=== PATIENT | female | born 1945 | race Caucasian/White ===

== ENCOUNTER 2018-07-30 15:16 | Inpatient (IN) | payer MEDICAID ==
[~2018-07-30] VITALS: Ht 152.4 cm; Wt 69.1 kg
[2018-07-30] MEDS ORDERED: MELATONIN 3 MG TABLET PO PRN (15:30)
[2018-07-30] MEDS ORDERED: LOPERAMIDE 2 MG (IMODIUM) CAP PO PRN (15:30)
[2018-07-30] MEDS ORDERED: CALCIUM CARBONATE 500 MG (TUMS) TAB.CHEW PO PRN (15:30)
[2018-07-30] MEDS ORDERED: DOCUSATE SODIUM 100 MG (COLACE) CAP PO PRN (15:30)
[2018-07-30] MEDS ORDERED: diphenhydrAMINE 25 MG TAB (BENADRYL) PO PRN (15:30)
[2018-07-30] MEDS ORDERED: ONDANSETRON 4 MG (ZOFRAN) ORAL DISSOLVE TAB PO PRN ×2 (15:30→19:00)
[2018-07-30] MEDS ORDERED: LISI2.5T PO (16:18)
[2018-07-30] MEDS ORDERED: LACT10SO33 PO (16:18)
[2018-07-30] MEDS ORDERED: TRAM50TA2 PO (16:18)
[2018-07-30] MEDS ORDERED: VENL25TA2 PO (16:18)
[2018-07-30] MEDS ORDERED: CIPR-226 PO (16:18)
[2018-07-30] MEDS ORDERED: STL80T PO ×2 (16:18)
[2018-07-30] MEDS ORDERED: DOXE100C4 PO (16:18)
[2018-07-30] MEDS ORDERED: ATOR40TA PO (16:18)
[2018-07-30] MEDS ORDERED: BUTA1CAP37 PO (16:18)
[2018-07-30] MEDS ORDERED: DIAZ10TA3 PO (16:18)
[2018-07-30] MEDS ORDERED: ONDN4T PO (16:18)
[2018-07-30] MEDS ORDERED: APIX5TAB PO (16:18)
[2018-07-30] MEDS ORDERED: CALC-694 PO (16:18)
[2018-07-30] MEDS ORDERED: RANI150T90 PO (16:18)
[2018-07-30] MEDS ORDERED: NF-NACL1GT PO (16:18)
[2018-07-30] MEDS ORDERED: IPRA3AMP31 NEB (16:18)
[2018-07-30] MEDS ORDERED: LORA10TA7 PO (16:20)
--- NOTE | 2018-07-30 16:25 | NUR ---
UPDATED MED REC WITH DISCHARGE MED ORDERS FROM [facility]. NOTE THE FOLLOWING CHANGES WERE MADE WHEN THE PATIENT DISCHARGE: START TAKING: CIPRO 250MG Q12H 1 DAY SODIUM CHLORIDE 1GM TID X 7 DAYS CHANGE HOW YOU TAKE: LISINOPRIL 2/5MG DAILY (UNSURE OF WHAT PRIOR DOSE WAS) I WILL UPDATE THE MED REC BACK TO THE LIST OF HOME MEDS AT A LATER DATE FOR PROPER DISCHARGE HOME ORDERS. Addendum: 07/31/18 at 1042 by CHEPE CAMPBELL [facility] UPDATED MED REC BACK TO THE LIST OF HOME MEDS THE PATIENT WAS TAKING PRIOR TO DISCHARGE FROM [facility]. I USED THE DISCHARGE ORDER CHANGES WELL COMPARED WITH WHAT HAS BEEN FILLED AT [facility] [place]. I REMOVED THE CIPRO AND SODIUM CHLORIDE THAT WAS STARTED AT DISCHARGE FROM THE MED REC. I CHANGED THE LISINOPRIL BACK TO THE 5MG DAILY (IT WAS DECREASED TO 2.5MG DAILY AT DISCHARGE) THE VENLAFAXINE WAS ORDERED TO CONTINUE 25MG HS AT DISCHARGE HOWEVER ACCORDING TO THE EXT MED HX SHE TAKING 1/2 TAB AT HS. I UPDATED THE DIRECTIONS TO WHAT IS SHOWN ON THE EXT MED HX AT THIS TIME. IN ADDITION TO WHAT IS SHOWN ON THE EXT MED HX [facility] FILL[facility]: 07-11-18 TRAMADOL 50MG #60 07-09-18 DUONEB NEBULIZER SOLUTION #270 06-29-18 SOTALOL 80MG #75 06-27-18 DIAZEPAM 10MG #60 04-13-18 LACTULOSE 10GM/15ML #946 04-02-18 ZOFRAN 4MG #60 ALSO REPORTED WAS CALCIUM +D BID OTC.
--- NOTE | 2018-07-30 18:15 | NUR ---
Admitted to room 232-1, with an admitting diagnosis of rt hip nialing, on 07/30/18 from [facility] , accompanied by .CANDI WEBSTER V introduced to surroundings, call light, bed controls, phone, TV, temperature control, lights, meal times, smoking policy, visitor policy, side rail policy, bathrooms and showers. Patient Rights given to patient in the handbook.CANDI WEBSTER V verbalizes understanding that [facility] is not responsible for the loss or damage to any personal effects or valuables that are kept in the patients posession during their hospitalization. The following Patient Care Plans were discussed with the : Discharge Planning, ,, alteration in skin integrity and . CANDI WEBSTER V verbalizes understanding of Interdisciplinary Patient Education. Patient and/or family were informed about the Rapid Response Team and its purpose. Patient received Patient Rights Booklet, which includes Privacy Act Statement and Data Collection Information Summary.
--- NOTE | 2018-07-30 18:43 | PM&R H&P / Post Admit Assess ---
History of Present Illness HPI/Chief Complaint CC: Right hip fracture repair with debility HPI: This is a 72yoWF chronically debilitated with h/o CAD previous CABG and PAF who presents to the IRF in need of intensive therapy prior to returning home. I have reviewed the records from [facility] and derived most of the details for this report. Patient's PCP is Dr Plascencia. She wears O2 at home prn and at night. Hospitalist did report that she had issues with hyponatremia while in patient and volume overload with dyspnea which improved with Lasix. UTI will need 2 more days of treatment on the current antibiotic selected and continued at this facility. Patient reports her pain is much improved and she had a BM today with resolution of the post op constipation. She lives at home alone and barriers to returning back to that environment will include ADL independence and return of ambulation with walker. Source: patient, RN/MD, old records Exam Limitations: no limitations Date Seen 07/30/18 Time Seen by a Provider: 18:00 Attending Physician Gertrude Barraza DO PCP Shlomo Plascencia MD Referring Physician Date of Admission July 30, 2018 at 18:12 Home Medications & Allergies Home Medications Reviewed patient Home Medication Reconciliation performed by pharmacy medication reconciliations surgical scrub technician and/or nursing. Patients Allergies have been reviewed. 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) Alcohol Use: Denies Use Smoking Status: Never a Smoker Recent Foreign Travel: No Contact w/other who traveled: No Recent Infectious Disease Expo: No Immunizations Up To Date Date of Pneumonia Vaccine: July 30, 2014 Past Medical History Surgeries: CABG, Orthopedic restrictive lung disease Cardiac: Atrial Fibrillation, Coronary Artery Disease, High Cholesterol, Hypertension Genitourinary: Renal Failure Gastrointestinal: Gastroesophageal Reflux, Chronic Constipation Musculoskeletal: Arthritis, Chronic Back Pain Cancer: Skin, Breast Psychosocial: Anxiety, Depression Review of Systems Constitutional: see HPI, malaise, weakness EENTM: no symptoms reported Respiratory: no symptoms reported Cardiovascular: no symptoms reported Gastrointestinal: no symptoms reported Genitourinary: no symptoms reported Musculoskeletal: joint pain Skin: no symptoms reported Psychiatric/Neurological: No Symptoms Reported All Other Systems Reviewed Negative Unless Noted: Yes Physical Exam Exam Vital Signs Vital Signs Date Time Temp Pulse Resp B/P (MAP) Pulse Ox O2 Delivery O2 Flow Rate FiO2 07/30/18 21:15 70 18 120/68 (85) 100 Nasal Cannula 3.00 07/30/18 18:44 97.4 Capillary Refill : General Appearance: No Apparent Distress, WD/WN, Chronically ill, Thin, Other ( frail, pale) HEENT: PERRL/EOMI, Normal ENT Inspection, Pharynx Normal, Moist Mucous Membranes Neck: Full Range of Motion, Normal Inspection, Non Tender, Supple Respiratory: Chest Non Tender, Lungs Clear, Normal Breath Sounds, No Accessory Muscle Use, No Respiratory Distress Cardiovascular: Regular Rate, Rhythm, No Edema, No Gallop, No JVD, No Murmur Gastrointestinal: Normal Bowel Sounds, No Organomegaly, No Pulsatile Mass, Non Tender, Soft Back: Normal Inspection, No CVA Tenderness, No Vertebral Tenderness Extremity: Normal Capillary Refill, Normal Inspection, Normal Range of Motion ( except right leg from pain), Non Tender, No Calf Tenderness, No Pedal Edema Neurologic/Psychiatric: Alert, Oriented x3, No Motor/Sensory Deficits, Depressed Affect Skin: Normal Color, Warm/Dry Lymphatic: No Adenopathy Results Results/Procedures Labs Laboratory Tests 07/31/18 05:25 Patient resulted labs reviewed. Assessment/Plan Assessment and Plan Assess & Plan/Chief Complaint Assessment: s/p right hip fracture repair 07/20/18 PAF Restrictive lung disease Anticoagulation Hyponatremia Acute UTI on abx s/p constipation Chronic debility O2 dependent Falls h/o breast cancer Anemia CAD Plan: IRF protocols Consult DR Montgomery Monitor BP Check labs Abx to be completed (1) Hip fracture, right (2) CAD (coronary artery disease) (3) Hx of CABG (4) Atrial fibrillation (5) Restrictive lung disease (6) Oxygen dependent (7) Hypertension (8) Anemia (9) Constipation (10) Hyponatremia (11) Hypothyroidism (12) Osteoporosis (13) Gastritis (14) Anticoagulant prescribed (15) GERD (gastroesophageal reflux disease) (16) Hyperlipidemia (17) History of melanoma (18) Anxiety (19) HX: breast cancer Post Admission Physician Asses Date seen by provider: July 31, 2018 Time seen by provider: 18:00 Admisison Dx: (1) Hip fracture, right The preadmission screen agrees with the post admission assessment that the patient is a good candidate for inpatient rehabilitation. The patient will have a comprehensive program of inpatient rehabilitation with a goal of maximizing level of functional independence prior to discharge home. The patient will have PT/OT ninety minutes per day, each discipline, five days a week for gait, strengthening, conditioning, balance, ADLs, any patient/ family/caregiver training as necessary. Speech therapy to do cognitive assessment and treat as indicated. Rehabilitation nursing to assist with bowel, bladder, skin, wound care, medication administration, pain management. Loader to assist with discharge planning, community reentry. SCD's for DVT prophylaxis. She appears to be well motivated to participate in three hours of therapy a day. She should be able to tolerate three hours of therapy a day from a medical standpoint. She should benefit from the three hours of therapy a day. She has a reasonable discharge plan, reasonable discharge rehabilitation goals and a supportive family. She has various comorbidities that need to be closely monitored with medications and treatments adjusted on a daily basis as needed. These include: see list Barriers to discharge for this patient who had been independent prior to this are for her to be modified independent to supervision for ADLs and mobility skills prior to discharge home, so as to lessen the burden of the caregivers. Risks for this patient include: 1. Fall 2. Fracture 3. DVT 4. Pulmonary embolism 5. Wound infection 6. Skin breakdown 7. Contractures 8. Poorly controlled pain 9. Urinary retention 10. UTI 11. Respiratory infection 12. Aspiration Estimated Length of Stay: 14 days Prognosis: Rehab prognosis appears good for goal of discharge home modified independent to supervision for ADLs and mobility skills. GERTRUDE BARRAZA DO July 30, 2018 18:43
[2018-07-30 18:44] VITALS: BP 122/76
[2018-07-30] MEDS ORDERED: NON-FORMULARY MEDICATION 1 EA EA (Diazepam 10 MG) PO PRN (18:45)
[2018-07-30] MEDS ORDERED: NON-FORMULARY MEDICATION 1 EA EA (Ondansetron HCl (Zofran) 8 MG) PO PRN (18:45)
[2018-07-30] MEDS ORDERED: NON-FORMULARY MEDICATION 1 EA EA (Ciprofloxacin HCl (Cipro) 250 MG) PO SCH (18:45)
[2018-07-30] MEDS ORDERED: ACETAMINOPHEN PO PRN (18:45)
[2018-07-30] MEDS ORDERED: BUTALB PO PRN (18:45)
[2018-07-30] MEDS ORDERED: [UNRECOGNIZED DRUG - OTHER] PO PRN (18:45)
[2018-07-30] MEDS ORDERED: NON-FORMULARY MEDICATION 1 EA EA (Lactulose 30 ML) PO PRN (18:45)
[2018-07-30] MEDS ORDERED: CAFFEINE PO PRN (18:45)
[2018-07-30] MEDS ORDERED: LACTULOSE SYRUP 10GM/15ML (ENULOSE) 30ML UDC PO PRN (19:00)
[2018-07-30] MEDS ORDERED: DIAZEPAM 5 MG (VALIUM) TABLET PO PRN (19:15)
[2018-07-30] MEDS ORDERED: ACET/BUTAL/CAFF (FIORICET) TAB PO PRN (19:15)
--- NOTE | 2018-07-30 19:30 | NUR ---
bedside report received from KEO HERNANDEZ, assume care of pt
--- NOTE | 2018-07-30 20:29 | NUR ---
Open areas cleansed with normal saline and meplix dressings applied to buttocks bilat, spine and bilat heels.
--- NOTE | 2018-07-30 20:30 | NUR ---
EKG completed, notified on consult, given history & meds taking at [facility], no new orders received
[2018-07-30] MEDS: RT-ALBUTEROL/IPRATROPIUM 3 ML (DUONEB) VIAL IH SCH (20:38)
[2018-07-30] MEDS ORDERED: DOXEPIN HCL 100 MG PO SCH (21:00)
[2018-07-30] MEDS ORDERED: VENLAFAXINE HCL 25 MG PO SCH (21:00)
[2018-07-30] MEDS ORDERED: NON-FORMULARY MEDICATION 1 EA EA (Calcium Carbonate/Vitamin D3 (Calcium 600 + Vit D Caplet PO SCH (21:00)
[2018-07-30] MEDS ORDERED: NON-FORMULARY MEDICATION 1 EA EA (Ranitidine HCl (Acid Reducer (RANITIDINE)) 150 MG) PO SCH (21:00)
--- NOTE | 2018-07-30 21:00 | NUR ---
assessments & interventions completed, see assessments & interventions, pt on 1000ml fluid restriction but had already had 600ml at [facility] today & 237ml with dinner so only had 163 ml of fluid to work with so gave Enulose instead of 34gms of miralax
[2018-07-30 21:15] VITALS: BP 120/68
[2018-07-30 21:20] VITALS: BP 120/98
[2018-07-30 21:30] VITALS: BP 120/68
[2018-07-30] MEDS: SOTALOL 80 MG (BETAPACE) TAB PO SCH (21:49)
[2018-07-30] MEDS: VENLAFAXINE 50 MG (EFFEXOR) TABLET PO SCH (21:49)
[2018-07-30] MEDS: CIPROFLOXACIN 500 MG (CIPRO) TABLET PO SCH (21:49)
[2018-07-30] MEDS: DOXEPIN 25 MG (SINEquan) CAP PO SCH (21:50)
[2018-07-30] MEDS: APIXABAN 5 MG (ELIQUIS) TABLET PO SCH (21:50)
[2018-07-30] MEDS: FAMOTIDINE 20 MG (PEPCID) TABLET PO SCH (21:50)
[2018-07-30] MEDS: POLYETHYLENE GLYCOL 17 GM (MIRALAX) PACK PO SCH (21:57)
[2018-07-31] MEDS ORDERED: CALCIUM CARB + VIT D 600 MG (CALCARB + D) TAB ONE (03:51)
[2018-07-31 05:51] LABS: BASOPHILS % (AUTO) 0 % (0-10); EOSINOPHILS # (AUTO) 0.1 10^3/uL (0.0-0.3); EOSINOPHILS % (AUTO) 1 % (0-10); HEMATOCRIT 29 % (35-52); HEMOGLOBIN 9.1 G/DL (11.5-16.0); LYMPHOCYTES # (AUTO) 0.9 X 10^3 (1.0-4.0); LYMPHOCYTES % (AUTO) 15 % (12-44); MEAN CORPUSCULAR HEMOGLOBIN 29 PG (25-34); MEAN CORPUSCULAR HGB CONC 32 G/DL (32-36); MEAN CORPUSCULAR VOLUME 91 FL (80-99); MEAN PLATELET VOLUME 7.8 FL (7.4-10.4); MONOCYTES # (AUTO) 1.2 X 10^3 (0.0-1.0); MONOCYTES % (AUTO) 20 % (0-12); NEUTROPHILS # (AUTO) 3.6 X 10^3 (1.8-7.8); NEUTROPHILS % (AUTO) 63 % (42-75); PLATELET COUNT 421 10^3/uL (130-400); RED CELL DISTRIBUTION WIDTH 12.7 % (10.0-14.5); WHITE BLOOD COUNT 5.8 10^3/uL (4.3-11.0)
[2018-07-31 06:00] VITALS: BP 96/54
[2018-07-31 06:04] LABS: ALANINE AMINOTRANSFERASE 18 U/L (0-55); ALBUMIN 2.8 GM/DL (3.2-4.5); ALKALINE PHOSPHATASE 97 U/L (40-136); BILIRUBIN,TOTAL 0.3 MG/DL (0.1-1.0); BUN/CREATININE RATIO 30; CALCIUM 8.1 MG/DL (8.5-10.1); CARBON DIOXIDE 32 MMOL/L (21-32); CHLORIDE 85 MMOL/L (98-107); CREATININE SERUM 0.73 MG/DL (0.60-1.30); GFR ESTIMATED > 60; GLUCOSE 127 MG/DL (70-105); POTASSIUM 3.8 MMOL/L (3.6-5.0); TOTAL PROTEIN 4.9 GM/DL (6.4-8.2)
[2018-07-31 06:50] LABS: SODIUM 124 MMOL/L (135-145)
[2018-07-31] MEDS: CALCIUM CARB + VIT D 600 MG (CALCARB + D) TAB PO SCH ×2 (06:53→16:38)
[2018-07-31] MEDS: SODIUM CHLORIDE 1 GM TAB (NON-FORMULARY) PO SCH ×3 (06:53→16:38)
[2018-07-31 07:11] VITALS: BP 96/54
--- NOTE | 2018-07-31 07:28 | NUR ---
bedside report given to KEO HERNANDEZ
[2018-07-31] MEDS: RT-ALBUTEROL/IPRATROPIUM 3 ML (DUONEB) VIAL IH SCH ×3 (07:43→19:41)
--- NOTE | 2018-07-31 08:33 | PM&R Progress Note ---
Subjective HPI/CC On Admission Date Seen by Provider: July 31, 2018 Time Seen by Provider: 08:10 CC: Right hip fracture repair with debility HPI: This is a 72yoWF chronically debilitated with h/o CAD previous CABG and PAF who presents to the IRF in need of intensive therapy prior to returning home. I have reviewed the records from [facility] and derived most of the details for this report. Patient's PCP is Dr Plascencia. She wears O2 at home prn and at night. Hospitalist did report that she had issues with hyponatremia while in patient and volume overload with dyspnea which improved with Lasix. UTI will need 2 more days of treatment on the current antibiotic selected and continued at this facility. Patient reports her pain is much improved and she had a BM today with resolution of the post op constipation. She lives at home alone and barriers to returning back to that environment will include ADL independence and return of ambulation with walker. Subjective/Events-last exam Very difficult to motivate the Pt. Appreciate Dr. Montgomery consultation who has reviewed Dr. Carl notes. Low BP noted so will inquire with Dr. Montgomery regarding medications. Sodium level 124, lower than 125 and on fluid restriction. Has some open areas, early decubitus ulcers on her sacrum and spine. Hips are red and purple so will be monitoring that closely. Unsure if she is going to be prepared to do the qualifications for inpatient rehab so I did update administration on setting up a usp placement if she doesn't meet the requirements. Review of Systems General: Fatigue, Malaise Musculoskeletal: leg pain Objective Exam Vital Signs Vital Signs Date Time Temp Pulse Resp B/P (MAP) Pulse Ox O2 Delivery O2 Flow Rate FiO2 07/31/18 21:05 Nasal Cannula 3.00 07/31/18 19:41 96 07/31/18 17:56 97.6 68 18 102/63 (76) Capillary Refill : Less Than 3 Seconds General Appearance: No Apparent Distress, WD/WN, Chronically ill, Thin, Other ( frail, pale) HEENT: PERRL/EOMI, Normal ENT Inspection, Pharynx Normal, Moist Mucous Membranes Neck: Full Range of Motion, Normal Inspection, Non Tender, Supple Respiratory: Chest Non Tender, Lungs Clear, Normal Breath Sounds, No Accessory Muscle Use, No Respiratory Distress Cardiovascular: Regular Rate, Rhythm, No Edema, No Gallop, No JVD, No Murmur Gastrointestinal: Normal Bowel Sounds, No Organomegaly, No Pulsatile Mass, Non Tender, Soft Back: Normal Inspection, No CVA Tenderness, No Vertebral Tenderness Extremity: Normal Capillary Refill, Normal Inspection, Normal Range of Motion ( except right leg from pain), Non Tender, No Calf Tenderness, No Pedal Edema Neurologic/Psychiatric: Alert, Oriented x3, No Motor/Sensory Deficits, Depressed Affect Skin: Normal Color, Warm/Dry Lymphatic: No Adenopathy Results/Procedures Lab Laboratory Tests 07/31/18 05:25 Patient resulted labs reviewed. FIM Transfers Therapy Code Descriptions/Definitions Functional Stopover Measure: 0=Not Assessed/NA 4=Minimal Assistance 1=Total Assistance 5=Supervision or Setup 2=Maximal Assistance 6=Modified Stopover 3=Moderate Assistance 7=Complete Stopover Therapy Quality Codes: 6 Independent with activity with or without an assistive device 5 Patient requires set up or clean up by helper. Patient completes activity by themselves 4 Supervision or touching assist (CGA). [place] provide cues , steadying assist 3 The helper provides less than half the effort to complete the activity 2 The helper provides more than half the effort to complete the activity 1 Dependent. The helper does all the effort to complete an activity 7 Patient refused to complete or attempt activity 9 The patient did not perform the activity before the current illness or injury 88 Not attempted due to Medical conditions or safety concerns Assessment/Plan Assessment and Plan Assess & Plan/Chief Complaint Assessment: s/p right hip fracture repair 07/20/18 PAF Restrictive lung disease Anticoagulation Hyponatremia Acute UTI on abx s/p constipation Chronic debility O2 dependent Falls h/o breast cancer Anemia CAD Plan: IRF protocols Consult DR Montgomery Monitor BP Check labs Abx to be completed Fluid restriction (1) Hip fracture, right (2) Atrial fibrillation (3) Constipation (4) Osteoporosis (5) Anemia (6) Anxiety (7) CAD (coronary artery disease) (8) Gastritis (9) Hyperlipidemia (10) Hyponatremia (11) Hypothyroidism (12) Restrictive lung disease (13) GERD (gastroesophageal reflux disease) (14) Hypertension (15) Oxygen dependent (16) HX: breast cancer (17) History of melanoma (18) Anticoagulant prescribed (19) Hx of CABG DENEEN CANALES DO July 31, 2018 08:33
--- NOTE | 2018-07-31 08:55 | ST Cognitive Linguistic Eval ---
Speech Evaluation-General Medical Diagnosis Fractured right hip Onset Date: Jul 20, 2018 Therapy Diagnosis Therapy Diagnosis: Cognitive-communication Precautions Precautions: Fall, Hip Precautions/Isolations: Fall Prevention, Standard Precautions, Pressure Ulcer Referral Referring Physician: Dr. Barraza Medical History Reviewed History: Yes Social History Current Living Status: Alone Speech PLF-Current Status Prior Level of Function The patient lived alone and was independent for her daily needs. Subjective The patient was pleasant and cooperative. She stated she was cold and just couldn't wake up. Language Eval: Auditory Comprehends Simple Yes/No Ques: Functional Indent/Objects Multiple Capps: Functional Ident/Pics in Multiple Capps: Functional Follows 1-Step Commands: Functional Follows Complex Directions: Functional Follows General Conversations: Functional Language Eval: Verbal Language Completes Spontaneous Greeting: Functional Produces Auto, Serial Info: Functional Imitates Simple Words/Phrases: Functional Word Finding: Functional Requests Basic Needs: Functional States Basic Personal Info: Functional Expresses Complex Ideas: Functional Objective Cognitive Domain Attention: WNL Memory: WNL Problem Solving: Functional Executive Functions: WNL Visuospatial Skills: WNL Objective Formal/Standardized Tests Biju Cognitive Assessment (MOCA) Results Visuospatial/Executive: 5/5, Namin/3, Memory: Immediate 5/5, Delayed with cues 3/5, Attention: /6, Language: 3/3, Abstraction: 2/2, Orientation: 6/6 Oral Motor/Speech Production Within Functional Limits Impression The patient is a pleasant, somewhat quiet 72 year old female who was admitted to the ARU s/p right hip fracture. The patient was presented the MOCA which she was able to complete within normal range for all areas tested. The patient does not require skilled ST at this time. Communication/Social Cognition Comprehension: 7 Expression: 6 Social Interaction: 6 Problem Solvin Memory: 7 Speech Patient Assess Expression of Ideas/Wants: Expression (4) Understanding Verbal Content: Understands (4) Brief Interview-Mental Status: Yes Repetition of Three Words: Three (3) Temporal Orientation: Year: Correct (3) Temporal Orientation: Day: Correct (1) Recall : Wear to say "Sock": Yes, no cue required (2) Recall : Color: Yes, after cueing (1) Recall : Bed: Yes,after cueing (1) Memory/Recall Ability: Current season, That he or she is in a hsp/hsp unit Speech-Plan Patient/Family Goals Patient/Family Goals: The patient plans to return to her home where she lives alone post rehab. Treatment Plan Speech Therapy Treatment Plan: Discontinue ST The patient does not require skilled ST services at this time. Treatment Duration: July 31, 2018 Frequency: 1 time per week Estimated Hrs Per Day: .25 hour per day Rehab Potential: Good Barriers to Learning: None identified Pt/Family Agrees to Plan: Yes Safety Risks/Education Teaching Recipient: Patient Teaching Methods: Discussion Response to Teaching: Verbalize Understanding Education Topics Provided: Safety within her room and utilization of the call light as needed. Time Speech Therapy Time In: 08:30 Speech Therapy Time Out: 08:45 Total Billed Time: 15 Billed Treatment Time 1, SPSNDMARILYN Hernandez July 31, 2018 08:54
[2018-07-31] MEDS ORDERED: NON-FORMULARY MEDICATION 1 EA EA (Lisinopril 2.5 MG) PO SCH (09:00)
--- NOTE | 2018-07-31 09:57 | Consultation-Cardiology ---
HPI-Cardiology Cardiology Consultation Date of Consultation 07/31/18 Date of Admission Time Seen by Provider: 09:50 Indication: CAD, PAF HPI Patient is a 72 y/o female with history of CAD, PAF. Currently in IRF after having hip fracture. Patients primary manager data center is Dr. Simmons. Denies any chest pain, dyspnea, dizziness, or lightheadedness. Reports recent stress test and echo done in the last year. No complaints at this time. 72-year-old lady with history of coronary artery disease, paroxysmal atrial fibrillation, follows with Dr. Simmons, had hip fracture with surgical repair. Transferred for rehabilitation. Denied any chest pain. No palpitation. No syncope or near syncopal episode, EKG showed sinus rhythm with normal QT interval, frequent premature ventricular contractions, maintained on sotalol. 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) Alcohol Use: Denies Use Recreational Drug Use: No Smoking Status: Never a Smoker Recent Foreign Travel: No Recent Infectious Disease Expo: No Recent Hopitalizations: Yes (RIGHT HIP SURGERY 08-12) Physical Abuse Screen: No Sexual Abuse: No Immunizations Up To Date Date of Pneumonia Vaccine: July 30, 2014 Past Medical History CAD, PAF, HTN Family Medical History Family History: Cardiovascular disease 19 FATHER (heart disease) G8 BROTHER (heart disease) Kidney disease G8 BROTHER (kidney disease) Neoplasm 19 MOTHER (breast ca) G8 SISTER, Onset:25's - 30 (breast ca) G8 SISTER (breast ca) Review of Systems Constitutional: No dizziness, No fever, No malaise; weakness EENTM: No blurred vision, No double vision, No mouth pain, No epistaxis, No nose pain Respiratory: No dyspnea on exertion, No orthopnea, No short of breath, No wheezing Cardiovascular: No chest pain, No edema, No palpitations Gastrointestinal: No abdominal pain, No constipation Genitourinary: No dysuria, No frequency Reviewed Test Results Reviewed Test Results Lab Laboratory Tests 07/31/18 05:25: White Blood Count 5.8, Red Blood Count 3.17L, Hemoglobin 9.1L, Hematocrit 29L, Mean Corpuscular Volume 91, Mean Corpuscular Hemoglobin 29, Mean Corpuscular Hemoglobin Concent 32, Red Cell Distribution Width 12.7, Platelet Count 421H, Mean Platelet Volume 7.8, Neutrophils (%) (Auto) 63, Lymphocytes (%) (Auto) 15, Monocytes (%) (Auto) 20H, Eosinophils (%) (Auto) 1, Basophils (%) (Auto) 0, Neutrophils # (Auto) 3.6, Lymphocytes # (Auto) 0.9L, Monocytes # (Auto) 1.2H, Eosinophils # (Auto) 0.1, Basophils # (Auto) 0.0, Sodium Level 124*L, Potassium Level 3.8, Chloride Level 85L, Carbon Dioxide Level 32, Anion Gap 7, Blood Urea Nitrogen 22H, Creatinine 0.73, Estimat Glomerular Filtration Rate > 60, BUN/ Creatinine Ratio 30, Glucose Level 127H, Calcium Level 8.1L, Corrected Calcium 9.1, Total Bilirubin 0.3, Aspartate Amino Transf (AST/SGOT) 21, Alanine Aminotransferase (ALT/SGPT) 18, Alkaline Phosphatase 97, Total Protein 4.9L, Albumin 2.8L ECG Impression ECG Initial ECG Rhythm: Normal Sinus, PVC Physical Exam Vital Signs Vital Signs - First Documented 07/30/18 18:44 Temp 97.4 Pulse 69 Resp 18 B/P (MAP) 122/76 (91) Pulse Ox 98 O2 Delivery Nasal Cannula O2 Flow Rate 3.00 Capillary Refill : Less Than 3 Seconds Height, Weight, BMI Height: 5'0.00" Weight: 152lbs. 6.4oz. 69.059392eq; 27.7 BMI Method: General Appearance: No Apparent Distress, WD/WN HEENT: PERRL/EOMI, Normal ENT Inspection Neck: Full Range of Motion, Normal Inspection, Non Tender, Supple Respiratory: Chest Non Tender, Lungs Clear, Normal Breath Sounds, No Accessory Muscle Use, No Respiratory Distress Cardiovascular: Regular Rate, Rhythm, No Edema, No Gallop, No JVD, No Murmur, Normal Peripheral Pulses Gastrointestinal: Normal Bowel Sounds, No Pulsatile Mass, Non Tender, Soft Rectal: Deferred Back: No CVA Tenderness Extremity: Non Tender, No Calf Tenderness Neurologic/Psychiatric: Alert, Oriented x3, chair mender II-XII Norm as Tested A/P-Cardiology Admission Diagnosis CAD PAF HTN right hip fx, s/p repair Assessment/Plan CAD with history of CABG in past. Patients primary manager data center is Dr. Simmons. Reports recent stress test and echo within the last year. I will try to obtain copy for further review. PAF- maintained on Eliquis, Sotalol. EKG reveals SR with PVC's. Continue to monitor. HTN- continue to monitor. s/p right hip fracture repair 07/20/18 History of Hyponatremia- continue to monitor. UTI- on abx, management per PCP. h/o breast cancer Anemia- continue to monitor H/H. Thank you for allowing us to participate in the management of Ms. Mckinney. This is Chelsea Solano PA-C, as a scribe for Dr. Montgomery. This Dr. Montgomery, have seen and evaluated the patient with Chelsea, interviewed and examined the patient, discussed the management plan and agree with the current scribed note. On examination lungs were clear to auscultation bilateral , heart is regular rate and rhythm. Frequent PVCs were noted. This is a 72- year-old lady with coronary artery disease, paroxysmal atrial flutter ablation, maintained sinus rhythm on sotalol. Has history of hypertension. I'll continue on current medication and continue to monitor, monitor blood pressure and EKG. I reviewed the above scribed note, I agree with the current finding, made minor modification using Italic font Clinical Quality Measures DVT/VTE Risk/Contraindication: Risk Factor Score Per Nursin RFS Level Per Nursing on Admit: 4+=Very High CHELSEA FINK July 31, 2018 09:57 NOEMY MONTGOMERY MD July 31, 2018 15:00
[2018-07-31] MEDS: POLYETHYLENE GLYCOL 17 GM (MIRALAX) PACK PO SCH ×2 (10:17→20:33)
[2018-07-31] MEDS: CIPROFLOXACIN 500 MG (CIPRO) TABLET PO SCH ×2 (10:17→20:32)
[2018-07-31] MEDS: FAMOTIDINE 20 MG (PEPCID) TABLET PO SCH ×2 (10:17→20:32)
[2018-07-31] MEDS: LORATADINE (CLARITIN) 10 MG TAB PO SCH (10:17)
[2018-07-31] MEDS: APIXABAN 5 MG (ELIQUIS) TABLET PO SCH ×2 (10:17→20:32)
[2018-07-31] MEDS: lisINopril 5 MG (PRINIVIL) TABLET PO SCH (10:18)
[2018-07-31] MEDS: ATORVASTATIN 40 MG (LIPITOR) TABLET PO SCH (10:18)
[2018-07-31] MEDS: SOTALOL 80 MG (BETAPACE) TAB PO SCH ×2 (10:18→20:32)
[2018-07-31] MEDS ORDERED: BUTA1TAB9 PO (10:28)
[2018-07-31] MEDS ORDERED: LISI-556 PO (10:28)
--- NOTE | 2018-07-31 10:51 | Occupational Therapy Eval ---
OT Evaluation-General/PLF Medical Diagnosis Admission Date July 30, 2018 at 18:12 Medical Diagnosis: Fractured right hip/IMN Onset Date: Jul 20, 2018 Therapy Diagnosis Therapy Diagnosis: Weakness Height/Weight Height (Feet): 5 Height (Inches): 0.00 Weight (Pounds): 152 Weight (Ounces): 6.4 Precautions Precautions/Isolations: Fall Prevention, Standard Precautions, Pressure Ulcer Safety Interventions: Move Closer to Desk Weight Bear Status Weight Bearing Restriction: Weight Bearing/Tolerated Referral Physician: Dr. Barraza Referral Reason: Activity Tolerance, Self Care, Evaluation/Treatment, Strengthening/ROM Medical History Pertinent Medical History: CABG, CAD, GERD, HTN Additional Medical History Melanoma removed from head approximately 2010 per pt. Current History Pt. tripped on oxygen tubing at home. Tripped and fx right femur. Reviewed History: Yes Social History Home: Apartment Current Living Status: Alone Entry Into Home: Level Entry ADL-Prior Level of Function Therapy Code Descriptions/Definitions Functional [place] Measure: 0=Not Assessed/NA 4=Minimal Assistance 1=Total Assistance 5=Supervision or Setup 2=Maximal Assistance 6=Modified [place] 3=Moderate Assistance 7=Complete [place] Therapy Quality Codes: 6 Independent with activity with or without an assistive device 5 Patient requires set up or clean up by helper. Patient completes activity by themselves 4 Supervision or touching assist (CGA). [place] provide cues , steadying assist 3 The helper provides less than half the effort to complete the activity 2 The helper provides more than half the effort to complete the activity 1 Dependent. The helper does all the effort to complete an activity 7 Patient refused to complete or attempt activity 9 The patient did not perform the activity before the current illness or injury 88 Not attempted due to Medical conditions or safety concerns Functional Abilities and Goals: Independent: Patient completed the activities by him/herself, with or without an assistive device, with no assistance from a helper. Needed Some Help: Patient needed partial assistance from another person to complete activities. Dependent: A helper completed the activities for the patient. Unknown: Not Applicable: ADL PLOF Comments Pt. states that she has assistance from [employer] [facility] twice a week, for two hours each time. She states that they clean and do her grocery shopping. Pt. reports that she is independent with ADLs otherwise. Does not use a walker. Cooks herself soft foods because she has difficulty swallowing. She states that this is from a hiatal hernia that was discovered many years ago. Self Care: Unknown Functional Cognition: Unknown DME/Equipment: Bath Chair, Tub/Shower OT Current Status Subjective No pain reported. Pt. states that she is just very sleepy. Reports that she has not needed pain meds. OT checked with nursing about pain meds that may have made her very fatigued. Pt. has not taken anything this a.m. Appearance Pt. in reclining chair. Has difficulty staying awake at first during OT assessment. Mental Status/Objective Patient Orientation: Person, Time Pt. demonstrates very flat affect. Often requires questions to be asked twice before answering. Attachments: Oxygen ADL-Treatment Grooming (FIM): 5 (Set up to brush hair and teeth. Pt. does not brush teeth very thoroughly. OT asks pt. if she would like to brush more, but she declines. ) Oral Hygiene (QC): 4 Bathing (FIM): 3 (Pt. declines shower. Agrees to spongebathe. Requires assistance in stance while she washes bandar areas. She attempts to wash to ankle level. Unable to wash ankles or feet. OT does this for her.) Shower/Bathe Self (QC): 3 Upper Body Dressing (FIM): 5 Upper Body Dressing (QC): 4 Lower Body Dressing (FIM): 3 (Pt. is able to doff underwear while standing, and then kick off feet while sitting. Declines donning new underwear after bath. OT doffs/dons socks for her.) Lower Body Dressing (QC): 3 On/Off Footwear (QC): 2 Transfers (B, C, W/C) (FIM): 4 (Min assist sit-stand from chair level.) Other Treatments Pt. has multiple padded dressings on areas of her body, such as her spine, coccyx, and bilateral heels. Pt. reports that they put these on her at previous hospital, but is unable to articulate why. OT educates her about importance of moving, shifting weight, and pressure relief. Pt. nods. Pt. demonstrates flat affect during treatment. Unable to fully give picture of previous abilities. Will continue to assess pt.'s abilities for discharge home. Education OT Patient Education: Correct positioning, Modified ADL techniques, Progress toward Goal/Update tx plan, Purpose of tx/functional activities, Reviewed precautions, Rehab process, Transfer techniques Teaching Recipient: Patient Teaching Methods: Demonstration, Discussion Response to Teaching: Verbalize Understanding, Return Demonstration OT Short Term Goals Short Term Goals Time Frame: August 07, 2018 Eating(FIM): 5 Grooming(FIM): 5 Bathing(FIM): 5 Upper Body Dressing(FIM): 5 Lower Body Dressing(FIM): 4 Toileting(FIM): 4 Transfers (B,C,W/C) (FIM): 5 Toilet/Commode Transfer(FIM): 5 Shower Transfer(FIM): 4 Additional Short Term Goals: 1-Demonstrate ADL Tasks, 2-Verbalize Understanding , 3-ImproveStrength/Ricky 1=Demonstrate adherence to instructed precautions during ADL tasks. 2=Patient will verbalize/demonstrate understanding of assistive devices/ modifications for ADL. 3=Patient will improve strength/tolerance for activity to enable patient to perform ADL's. OT Mortar Mixer Goals Mortar Mixer Goals Time Frame: August 21, 2018 Eating (FIM): 6 Eating (QC): 6 Groomin Oral Hygiene (QC): 6 Bathing(FIM): 5 Shower/Bathe Self (QC): 5 Upper Body Dressing(FIM): 6 Lower Body Dressing(FIM): 5 Lower Body Dressing (QC): 5 On/Off Footwear (QC): 5 Toileting(FIM): 6 Toileting Hygiene (QC): 6 Transfers (B,C,W/C) (FIM): 6 Toilet/Commode Transfer(FIM): 6 Toilet/Commode Transfer (QC): 6 Shower Transfer(FIM): 5 Additional Goals: 1-Demonstrate ADL Tasks, 2-Verbalize Understanding, 3- ImproveStrength/Ricky 1=Demonstrate adherence to instructed precautions during ADL tasks. 2=Patient will verbalize/demonstrate understanding of assistive devices/ modifications for ADL. 3=Patient will improve strength/tolerance for activity to enable patient to perform ADL's. OT Education/Plan Problem List/Assessment Assessment: Decreased Activ Tolerance, Decreased UE Strength, Dependent Transfers, Impaired Funct Balance, Impaired I ADL's, Impaired Self-Care Skills, Restricted Funct UE ROM Discharge Recommendations Plan/Recommendations: Continue POC Comment To be determined Treatment Plan/Plan of Care Treatment,Training & Education: Yes Patient would benefit from OT for education, treatment and training to promote independence in ADL's, mobility, safety and/or upper extremity function for ADL' s. Plan of Care: ADL Retraining, Functional Mobility, Group Exercise/Act as Ind, UE Funct Exercise/Act Treatment Duration: August 21, 2018 Frequency: At least 5 of 7 days/Wk (IRF) Estimated Hrs Per Day: 1.5 hours per day Agreement: Yes Rehab Potential: Good Time/GCodes Start Time: 08:45 Stop Time: 09:45 Total Time Billed (hr/min): 60 Billed Treatment Time 1, EVH x 15minutes, ADL x 45minutes SAMEERA ELLIS OT July 31, 2018 10:51
--- NOTE | 2018-07-31 10:56 | Physical Therapy Evaluation ---
PT Evaluation-General Medical Diagnosis Admission Date July 30, 2018 at 18:12 Medical Diagnosis: Fractured right hip Onset Date: Jul 20, 2018 Therapy Diagnosis Therapy Diagnosis: abn gait Height/Weight Height (Feet): 5 Height (Inches): 0.00 Weight (Pounds): 152 Weight (Ounces): 6.4 Precautions Precautions/Isolations: Fall Prevention, Standard Precautions, Pressure Ulcer Weight Bear Status Right Lower Extremity: Right Weight Bearing/Tolerated Left Lower Extremity: Left Full Weight Bearing Referral Physician: Madi Reason for Referral: Evaluation/Treatment Medical History Pertinent Medical History: Atrial Fib, CABG, CAD, GERD, HTN Additional Medical History CHF; breast CA; UTI Current History Pt admitted to [facility]U post acute stay due to a right hip fracture that was repaired with an IMnail on 07/22/18. Pt reports she tripped on her oxygen and fell and sustained the hip fracture.. Reviewed History: Yes Social History Home: Apartment Current Living Status: Alone Entry Into Home: Level Entry Prior/Core FIM Prior Level of Function Therapy Code Descriptions/Definitions Functional [place] Measure: 0=Not Assessed/NA 4=Minimal Assistance 1=Total Assistance 5=Supervision or Setup 2=Maximal Assistance 6=Modified [place] 3=Moderate Assistance 7=Complete [place] Therapy Quality Codes: 6 Independent with activity with or without an assistive device 5 Patient requires set up or clean up by helper. Patient completes activity by themselves 4 Supervision or touching assist (CGA). [place] provide cues , steadying assist 3 The helper provides less than half the effort to complete the activity 2 The helper provides more than half the effort to complete the activity 1 Dependent. The helper does all the effort to complete an activity 7 Patient refused to complete or attempt activity 9 The patient did not perform the activity before the current illness or injury 88 Not attempted due to Medical conditions or safety concerns Functional Abilities and Goals: Independent: Patient completed the activities by him/herself, with or without an assistive device, with no assistance from a helper. Needed Some Help: Patient needed partial assistance from another person to complete activities. Dependent: A helper completed the activities for the patient. Unknown: Not Applicable: Bed Mobility: 7 Transfers (B,C,W/C) (FIM): 7 Gait: 7 Stairs: 6 (3-4 to get into ho[place]) Indoor Mobility (Ambulation): Needed Some Help Stairs: Independent Pt reports she was indep in her home. Reports she did still drive; reports she primarily drove to/from [place] and was able to walk into her [facility] without assist. Reports she had to go up/down 3-4 steps at [facility]. Reports she had help with cleaning and cooking in her home but was otherwise indep with self care and mobility. PT Evaluation-Current Subjective Pt reports she is tired. Reports the trip to this facility yesterday wore her out and was stressful. Reports she did sleep well last night. Pt reports, "All i need to do is sleep." Reports she is willing and wants to go to a fpc. During assessment, once pt laid down for this therapist to assess bed mobility she refused to get up out of bed again for further testing. She did agree to leg exercises in supine. Offered to order pt lunch for noon and she decline, but eventually agreed to a protein drink such as Ensure or the most appropriate drink. Pt/Family Goals She reports she would like to eventually go home but notes she doesnt think she can. Reports she wants to go to a fpc at this time. Objective Patient Orientation: Person, Place, Time, Situation Problem Solving: Fair ROM/Strength ROM Lower Extremities ROM is WFL Strenght Lower Extremities strength is grossly 3/5 throughout Integumentary/Posture Integumentary refer to nursing notes for full assessment. Posture severe scoliosis with curve of her spine to the right and left hip elevated/ protruding. Thoracic kyphosis noted as well. Sensory Vision: Functional Hearing: Functional Hand Dominance: Right Sensation Right Lower Extremit: Intact Sensation Left Lower Extremity: Intact Transfers Therapy Code Descriptions/Definitions Functional [place] Measure: 0=Not Assessed/NA 4=Minimal Assistance 1=Total Assistance 5=Supervision or Setup 2=Maximal Assistance 6=Modified [place] 3=Moderate Assistance 7=Complete [place] Therapy Quality Codes: 6 Independent with activity with or without an assistive device 5 Patient requires set up or clean up by helper. Patient completes activity by themselves 4 Supervision or touching assist (CGA). [place] provide cues , steadying assist 3 The helper provides less than half the effort to complete the activity 2 The helper provides more than half the effort to complete the activity 1 Dependent. The helper does all the effort to complete an activity 7 Patient refused to complete or attempt activity 9 The patient did not perform the activity before the current illness or injury 88 Not attempted due to Medical conditions or safety concerns Transfers (B, C, W/C) (FIM): 1 Scootin (assist of 2 to scoot up in bed.) Roll Left to Right (QC): 7 Sit to/from Stand: 3 (mod assist ot come to a stand from standard height chair. ) Sit to Lying (QC): 3 (assist with both legs to get into bed. ) Lying to Sitting/Side of Bed(Q: 7 Sit to Stand (QC): 3 Chair/Uia-el-Gzbag Xfer(QC): 3 Car Transfer (QC): 7 Pt performed sit to stand transfer, gait and toileting; once she got into bed she refused further transfers. Gait Does the Patient Walk?: Yes Mode of Locomotion: Walk Anticipated Mode of Locomotion: Walk Gait (FIM): 2 Distance (FIM): 1=up to 49 ft Walk 10 feet (QC): 3 Walk 50 ft with 2 Turns(QC): 7 Walk 150 ft (QC): 7 Walking 10ft/uneven surface-QC: 7 Distance: 12 ft with FWW Gait Level of Assist: 4 Gait Persons Needed: 1 Gait Assistive Device: FWW Comments/Gait Description Pt ambulates with FWW with forward flexed posture with min assist at gait belt with decreased step length, decreased foot clearance and decreased speed; unsteady at times. Wheelchair Training Does the Pt Use a Wheelchair?: No Stairs Stairs (FIM): 0 (pt refused to attempt this visit; will attempt again tomorrow) 1 Step (curb) (QC): 7 4 Steps (QC): 7 If not tested on admit;explain patient refused to attempt Balance Sitting Static: Good Sitting Dynamic: Fair Standing Static: Fair Standing Dynamic: Fair Picking up an Object (QC): 88 Treatment Pt agreed to perform leg exercises in bed for AP, QS, heel slide and hip abduct all with AAROM with limited ROM performed and required much assist to complete x 10 reps each. Assessment/Needs pt admitted to this facility post acute hospital stay due to fall with right hip fracture. She was indep at her PLOF. In general, she requires mod to max assist with all functional mobility due to strength, balance and functional activty deficits. Her motivation at this time is limited, but may improve with continued intervention and education on importance of particpation with therapy. She does have potential to make gains and to improve with skilled therapy intervention. Rehab Potential: Guarded (due to motivation) PT Short Term Goals Short Term Goals Time Frame: August 14, 2018 Transfers (B,C,W/C) (FIM): 4 Gait (FIM): 4 PT Paper Machine Supervisor Goals Paper Machine Supervisor Goals PT Nursing Home Goals Time Frame: Aug 28, 2018 Transfers (B,C,W/C) (FIM): 6 Sit to Lying (QC): 6 Lying-Sitting on Side/Bed(QC): 6 Sit to Stand (QC): 6 Roll Left to Right (QC): 6 Chair/Icb-in-Eybdq Xfer(QC): 6 Car Transfer (QC): 5 Does the Patient Walk: Yes Gait (FIM): 6 Gait distance (FIM): 3=150 ft Walk 10 feet (QC): 6 Walk 10ft-Uneven Surface(QC): 4 Walk 50ft with 2 Turns (QC): 6 Walk 150 ft (QC): 6 Gait Assistive Device: FWW Does the Pt use WC or Scooter?: No Stairs (FIM): 2 # of Steps: 1 1 Step (curb) (QC): 4 4 Steps (QC): 88 12 Steps (QC): 88 Picking up an Object (QC): 88 PT Plan Problem List Problem List: Activity Tolerance, Functional Strength, Safety, Balance, Gait, Transfer, Bed Mobility Treatment/Plan Treatment Plan: Continue Plan of Care Treatment Plan: Bed Mobility, Education, Functional Activity Ricky, Functional Strength, Group Therapy, Gait, Safety, Therapeutic Exercise, Transfers Treatment Duration: Aug 28, 2018 Frequency: At least 5 of 7 days/Wk (IRF) Estimated Hrs Per Day: 1.5 hours per day Patient and/or Family Agrees t: Yes Safety Risks/Education Patient Education: Safety Issues Teaching Recipient: Patient Teaching Methods: Discussion Response to Teaching: Reinforcement Needed importance of participation with therapy for optimal recovery. Time/GCodes Time In: 1030 Time Out: 1130 Total Billed Treatment Time: 60 Total Billed Treatment visit EVM 30 FA 15 EX 15 EVELIO CANALES PT July 31, 2018 10:56
--- NOTE | 2018-07-31 14:44 | Occ Therapy Progress Note ---
Therapy Progress Note Attempted to see pt. this afternoon for group therapy. Pt. adamant that she did not want to come. Pt. states, "I am throwing in the towel." "I want to go to a residential." OT continues to gently encourage pt. Pt. continues to refuse. Have notified nursing. 1, visit 1300 SAMEERA ELLIS OT July 31, 2018 14:44
[2018-07-31 17:56] VITALS: BP 102/63
[2018-07-31] MEDS: DOXEPIN 25 MG (SINEquan) CAP PO SCH (20:31)
[2018-07-31] MEDS: VENLAFAXINE 50 MG (EFFEXOR) TABLET PO SCH (20:31)
--- NOTE | 2018-07-31 21:24 | Individualized Plan of Care ---
Individualized Plan of Care Rehab Nursing IPOC Order Admission Date July 30, 2018 at 18:12 Current Orders Orders Admission Order(Inpt,Obs,Sdc) (07/30/18 15:28) Vital Signs: Per Unit Policy ( 08,16,00 (07/30/18 15:28) [facility]id[facility] Man-Inpt Rehab Con (07/30/18 15:28) Rehab Nursing Orders-Ipoc (07/30/18 15:28) Physical Therapy Rehab Orders (07/30/18 15:28) Occupational Therapy Rehab Ord (07/30/18 15:28) Speech Therapy Rehab Orders (07/30/18 15:28) Intake & Output 06,14,22 (07/30/18 15:28) Precautions (Aru) (07/30/18 15:28) Weekly Weight (Lbs) WEEK (07/30/18 15:28) Rehab-Intensity Of Therapy (07/30/18 15:28) Initiate Admission Nursing Pro .admission (07/30/18 15:28) Nursing Communication (Order) (07/30/18 15:28) Acetaminophen Tablet (Tylenol Tablet) (07/30/18 15:30) Calcium Carbonate Chew Tablet (Antacid C (07/30/18 15:30) Diphenhydramine Tablet (Benadryl Tablet) (07/30/18 15:30) Docusate Sodium Capsule (Colace Capsule) (07/30/18 15:30) Loperamide Capsule (Imodium Capsule) (07/30/18 15:30) Melatonin Tablet (Melatonin Tablet) (07/30/18 15:30) Polyethylene Glycol Powder Pkt (Miralax (07/30/18 21:00) Ondansetron Oral Dissolve Tab (Zofran (07/30/18 15:30) Fluid Restriction (07/30/18 15:28) Cbc With Automated Diff (07/31/18 06:00) Comprehensive Metabolic Panel (07/31/18 06:00) Ekg Tracing (07/30/18 15:28) Consult Cardiology (07/30/18 15:28) General/Regular (07/30/18 Dinner) Ensure Plus (07/30/18 Dinner) Apixaban Tablet (Eliquis Tablet) (07/30/18 21:00) Atorvastatin Tablet (Lipitor) (07/31/18 09:00) Albuterol/Ipra Inhalation Soln (Duoneb I (07/30/18 21:00) Loratadine Tablet (Claritin Tablet) (07/31/18 09:00) Na Chloride Tab (Non-Formulary (Sodium C (07/31/18 07:00) Sotalol Tablet (Betapace Tablet) (07/30/18 21:00) Sotalol Tablet (Betapace Tablet) (07/31/18 09:00) Tramadol Tablet (Ultram Tablet) (07/30/18 18:45) (Nf) Butalb/Acetaminophen/Caffeine (Buta (07/30/18 18:45) (Nf) Calcium Carbonate/Vitamin D3 (Calci (07/30/18 21:00) (Nf) Ciprofloxacin Hcl (Cipro) (07/30/18 18:45) (Nf) Diazepam (07/30/18 18:45) (Nf) Doxepin Hcl (07/30/18 21:00) (Nf) Lactulose (07/30/18 18:45) (Nf) Lisinopril (07/31/18 09:00) (Nf) Ondansetron Hcl (Zofran) (07/30/18 18:45) (Nf) Ranitidine Hcl (Acid Box Truck Washer (Ranit (07/30/18 21:00) (Nf) Venlafaxine Hcl (07/30/18 21:00) Ondansetron Oral Dissolve Tab (Zofran (07/30/18 19:00) Venlafaxine Tablet (Effexor Tablet) (07/30/18 21:00) Famotidine Tablet (Pepcid Tablet) (07/30/18 21:00) Lisinopril Tablet (Zestril Tablet) (07/31/18 09:00) Lactulose Oral Solution (Enulose Oral So (07/30/18 19:00) Code/Resuscitation (07/30/18 18:59) Doxepin Capsule (Sinequan Capsule) (07/30/18 21:00) Butalbital/Apap/Caffeine Tab (Fioricet T (07/30/18 19:15) Calcium Carbonate W/Vitamin D3 (Calcarb (07/31/18 07:00) Diazepam Tablet (Valium Tablet) (07/30/18 19:15) Ciprofloxacin Tablet (Cipro Tablet) (07/30/18 21:00) Fluid Restriction (07/30/18 19:39) No Fluid On Trays (07/31/18 Breakfast) Rt Request For Service (07/30/18 20:44) Calcium Carbonate W/Vitamin D3 (Calcarb (07/31/18 03:51) Patient Visit (07/31/18 ) Speech Sound Lang Comp (07/31/18 ) Patient Visit (07/31/18 ) Pt Eval Moderate Complexity (07/31/18 ) Functional Activities, Ea 15 (07/31/18 ) Exercise Therap, Ea 15 Min (07/31/18 ) Rehab Nursing Orders: Ongoing Assess. of Cognitive Status, Ongoing Assess. of Function Status, Bladder Management, Bladder Scan, Bladder Training, Bowel Management, Bowel Training, Disease Management & Educaiton, DVT Prophylaxis, Fall Prevention, Fluid/Electrolyte/Nutrition Mgmt, Infection Prevention, Management of Risks & Complications, Management of Skin Intergrity, Nutrition Management, Pain Management, Patient/Family Support, Safety Management Intensity of Therapy to be met Patient to be seen: Min.3h per day/5 of 7d PT IPOC Problem List: Activity Tolerance, Functional Strength, Safety, Balance, Gait, Transfer, Bed Mobility Treatment Plan: Continue Plan of Care Bed Mobility, Education, Functional Activity Ricky, Functional Strength, Group Therapy, Gait, Safety, Therapeutic Exercise, Transfers Treatment Duration: Aug 28, 2018 Frequency: At least 5 of 7 days/Wk (IRF) Estimated Hrs Per Day: 1.5 hours per day OT IPOC Problems: Decreased Activ Tolerance, Decreased UE Strength, Dependent Transfers , Impaired Funct Balance, Impaired I ADL's, Impaired Self-Care Skills, Restricted Funct UE ROM OT Treatment, Training and Edu: Yes Plan of Care: ADL Retraining, Functional Mobility, Group Exercise/Act as Ind, UE Funct Exercise/Act Treatment Duration: August 21, 2018 Frequency: At least 5 of 7 days/Wk (IRF) Estimated Hrs Per Day: 1.[address] IPOC Speech Therapy Treatment Plan: Discontinue ST Treatment Duration: July 31, 2018 Frequency: 1 time per week Estimated Hrs Per Day: .25 hour per day [facility]way Man/Case Mgmt [place] Man/Case Managemen: Discharge Planning Dietitian/Perfumer Dietitian/Perfumer to monitor nutritional status and make changes and/or recommendations as needed and work with speech pathology on dietary upgrades as the occur. Physician IPOC Medical Issues being managed closely and that require the 24 hour availability of a physician: Hyponatremia will require close monitoring in case decreases level placing patient at seizure risk Medical Issues: Bowel/Bladder Function, DVT Prophylaxis, Falls Precautions, Fluid/Electrolyte/Nutrition Balance, Infection Protection, Pain Management Brief Synthesis of Preadmission Screen, Post-Admission Evaluation, and Therapy Evaluations: PT will focus on assistive device to help ambulate OT will work towards ADL independence Medical Prognosis: Good Anticipated Length of Stay: 14 days DENEEN CANALES DO July 31, 2018 21:24
--- NOTE | 2018-08-01 03:50 | NUR ---
WHANAU SUPPORT WORKER met with patient to review team conference summary. As patient has adamantly expressed desire to all disciplines to discharge and admit to a long-term care facility, while refusing to participate in therapies, team has recommended patient discharge once facility is able to except. WHANAU SUPPORT WORKER received confirmation from [facility] of ability to accept patient tomorrow for placement in long-term care unit. WHANAU SUPPORT WORKER again reviewed with patient the lack of therapy but will be provided at long-term care and the potential of further physical decline due to this, patient again verbalized understanding of this and desired for this setting. WHANAU SUPPORT WORKER will complete [place] PASSR for admission to facility tomorrow. Please see discharge summary for further information.
[2018-08-01 05:09] VITALS: BP 107/66
[2018-08-01] MEDS: CALCIUM CARB + VIT D 600 MG (CALCARB + D) TAB PO SCH ×2 (06:40→17:22)
[2018-08-01] MEDS: SODIUM CHLORIDE 1 GM TAB (NON-FORMULARY) PO SCH ×3 (06:40→17:23)
[2018-08-01] MEDS: RT-ALBUTEROL/IPRATROPIUM 3 ML (DUONEB) VIAL IH SCH ×3 (08:16→19:31)
--- NOTE | 2018-08-01 08:20 | Cardiology Progress Note ---
Subjective Date Seen by Provider: August 01, 2018 Time Seen by Provider: 08:17 Subjective/Events-last exam Patient is in bed, complaining of fatigue and lethargy. Denies any chest pain. A &O x 3 Objective-Cardiology Exam Last Set of Vital Signs Vital Signs 08/01/18 05:09 Temp 98.5 Pulse 72 Resp 18 B/P (MAP) 107/66 (80) Pulse Ox 97 O2 Delivery Nasal Cannula O2 Flow Rate 3.00 Capillary Refill : Less Than 3 Seconds I&O Intake and Output 08/01/18 00:00 Intake Total 887 ml Balance 887 ml Intake Oral 887 ml # Voids 4 General: Alert, Oriented X3, Cooperative HEENT: Atraumatic, PERRLA Neck: Supple, No JVD, No Thyromegaly Lungs: Clear to Auscultation, Normal Air Movement Heart: Regular Rate, Normal S1, Normal S2, No Murmurs Abdomen: Normal Bowel Sounds, Soft, No Tenderness, No Hepatosplenomegaly, No Masses Extremities: No Clubbing, No Cyanosis, No Edema, Normal Pulses, No Tenderness/ Swelling Skin: No Rashes, No Breakdown, No Significant Lesion Neuro: Normal Gait, Normal Speech, Strength at 5/5 X4 Ext, Normal Tone, Sensation Intact Psych/Mental Status: Mental Status NL, Mood NL A/P-Cardiology Admission Diagnosis CAD PAF HTN right hip fx, s/p repair Assessment/Plan CAD with history of CABG in past. Patients primary earth science laboratory technician is Dr. Diaz. Reports recent stress test and echo within the last year. I will try to obtain copy for further review. PAF- maintained on Eliquis, Sotalol. EKG reveals SR with PVC's. Continue to monitor. HTN- continue to monitor. s/p right hip fracture repair 07/20/18 Hyponatremia- management per Dr. Barraza. UTI- on abx, management per DR. Barraza h/o breast cancer Anemia- continue to monitor H/H. T Clinical Quality Measures DVT/VTE Risk/Contraindication: Risk Factor Score Per Nursin RFS Level Per Nursing on Admit: 4+=Very High BENNY FINK August 01, 2018 08:20
--- NOTE | 2018-08-01 08:42 | PM&R Progress Note ---
Subjective HPI/CC On Admission Date Seen by Provider: August 01, 2018 Time Seen by Provider: 08:15 CC: Right hip fracture repair with debility HPI: This is a 72yoWF chronically debilitated with h/o CAD previous CABG and PAF who presents to the IRF in need of intensive therapy prior to returning home. I have reviewed the records from [facility] and derived most of the details for this report. Patient's PCP is Dr Plascencia. She wears O2 at home prn and at night. Hospitalist did report that she had issues with hyponatremia while in patient and volume overload with dyspnea which improved with Lasix. UTI will need 2 more days of treatment on the current antibiotic selected and continued at this facility. Patient reports her pain is much improved and she had a BM today with resolution of the post op constipation. She lives at home alone and barriers to returning back to that environment will include ADL independence and return of ambulation with walker. Subjective/Events-last exam Turning pt every two hours due to the fact of the early decubitus ulcers Scalp melanoma site is chronic in nature and does not wish to have a general surgeon consult Overall is not motivated enough to be successful in inpatient rehab and will be searching for a nursing facility at [place] Chronic hyponatremia leads me to believe that there is an end stage component to her illness Overall very weak Dr Plascencia will be called and updated tomorrow due to failure of IRF and sending to [place] Will recheck her sodium level Review of Systems Neurological: Weakness, Numbness, Incoordination Objective Exam Vital Signs Vital Signs Date Time Temp Pulse Resp B/P (MAP) Pulse Ox O2 Delivery O2 Flow Rate FiO2 08/01/18 19:33 Nasal Cannula 2.00 08/01/18 17:24 98.3 81 18 118/70 (86) 97 Capillary Refill : Less Than 3 Seconds General Appearance: No Apparent Distress, WD/WN, Chronically ill, Thin, Other ( frail, pale) HEENT: PERRL/EOMI, Normal ENT Inspection, Pharynx Normal, Moist Mucous Membranes Neck: Full Range of Motion, Normal Inspection, Non Tender, Supple Respiratory: Chest Non Tender, Lungs Clear, Normal Breath Sounds, No Accessory Muscle Use, No Respiratory Distress Cardiovascular: Regular Rate, Rhythm, No Edema, No Gallop, No JVD, No Murmur Gastrointestinal: Normal Bowel Sounds, No Organomegaly, No Pulsatile Mass, Non Tender, Soft Rectal: Deferred Back: Normal Inspection, No CVA Tenderness, No Vertebral Tenderness Extremity: Normal Capillary Refill, Normal Inspection, Normal Range of Motion ( except right leg from pain), Non Tender, No Calf Tenderness, No Pedal Edema Neurologic/Psychiatric: Alert, Oriented x3, No Motor/Sensory Deficits, Depressed Affect Skin: Normal Color, Warm/Dry Lymphatic: No Adenopathy Results/Procedures Lab Patient resulted labs reviewed. FIM Transfers Therapy Code Descriptions/Definitions Functional [place] Measure: 0=Not Assessed/NA 4=Minimal Assistance 1=Total Assistance 5=Supervision or Setup 2=Maximal Assistance 6=Modified [place] 3=Moderate Assistance 7=Complete [place] Therapy Quality Codes: 6 Independent with activity with or without an assistive device 5 Patient requires set up or clean up by helper. Patient completes activity by themselves 4 Supervision or touching assist (CGA). [place] provide cues , steadying assist 3 The helper provides less than half the effort to complete the activity 2 The helper provides more than half the effort to complete the activity 1 Dependent. The helper does all the effort to complete an activity 7 Patient refused to complete or attempt activity 9 The patient did not perform the activity before the current illness or injury 88 Not attempted due to Medical conditions or safety concerns Mental Status/Objective Comprehension: 7 Expression: 6 Social Interaction: 6 Problem Solvin Memory: 7 ADL-Treatment Groomin (Set up to brush hair and teeth. Pt. does not brush teeth very thoroughly. OT asks pt. if she would like to brush more, but she declines.) Oral Hygiene (QC): 4 Bathin (Pt. declines shower. Agrees to spongebathe. Requires assistance in stance while she washes bandar areas. She attempts to wash to ankle level. Unable to wash ankles or feet. OT does this for her.) Shower/Bathe Self (QC): 3 Upper Extremity Dressin Upper Body Dressing (QC): 4 Lower Extremity Dressin (Pt. is able to doff underwear while standing, and then kick off feet while sitting. Declines donning new underwear after bath. OT doffs/dons socks for her.) Lower Body Dressing (QC): 3 On/Off Footwear (QC): 2 Assessment/Plan Assessment and Plan Assess & Plan/Chief Complaint Assessment: s/p right hip fracture repair 07/20/18 PAF Restrictive lung disease Anticoagulation Hyponatremia Acute UTI on abx s/p constipation Chronic debility O2 dependent Falls h/o breast cancer Anemia CAD Plan: IRF protocols Consult DR Montgomery Monitor BP Check labs Abx to be completed Fluid restriction Check sodium in morning NH placement since failed IRF and will update PCP (1) Hip fracture, right (2) Atrial fibrillation (3) Constipation (4) Osteoporosis (5) Anemia (6) Anxiety (7) CAD (coronary artery disease) (8) Gastritis (9) Hyperlipidemia (10) Hyponatremia (11) Hypothyroidism (12) Restrictive lung disease (13) GERD (gastroesophageal reflux disease) (14) Hypertension (15) Oxygen dependent (16) HX: breast cancer (17) History of melanoma (18) Anticoagulant prescribed (19) Hx of CABG DENEEN CANALES DO August 01, 2018 08:42
--- NOTE | 2018-08-01 08:45 | NUR ---
PRIVATE BRANCH EXCHANGE SERVICE ADVISOR met with patient to complete initial assessment. Patient was alert and oriented; however, was not eager to complete assessment. Prior to PRIVATE BRANCH EXCHANGE SERVICE ADVISOR arrival, PRIVATE BRANCH EXCHANGE SERVICE ADVISOR received report from multiple staff members of patient's refusal to complete therapies and desired to admit to a long-term facility. PRIVATE BRANCH EXCHANGE SERVICE ADVISOR met with patient to discuss options. Patient confirms she was independent prior to hospitalization for hip fracture; however, states the intensity of ARU is too much for her to tolerate. Patient states she was informed that ARU program would be hard; however, she thought she could complete necessary activities, but since admitting feels otherwise. Patient verbalizes desire to admit to a long term. As patient is [place] Medicaid only, PRIVATE BRANCH EXCHANGE SERVICE ADVISOR informed patient that therapies will not be provided at a long term and that she would admit with intentions of remaining in long-term care for entirety of life. Patient verbalized understanding of this and remains insistent on proceeding with this plan. Prior to admitting to a , patient previously verbalized desire to admit to [facility] while at the hospital at [facility]. She confirmed desire for PRIVATE BRANCH EXCHANGE SERVICE ADVISOR to send referral to this facility. PRIVATE BRANCH EXCHANGE SERVICE ADVISOR sent referral to [facility] and [facility] and will await response.
--- NOTE | 2018-08-01 09:25 | Physical Therapy Daily Note ---
PT Daily Note-Current Subjective Pt. states " Im not doing any therapy with you." This FIELD TRAINER inquires as to why and pt. contends she does not want therapies . Pt. states all her own family is ( brothers and sisters ) and she doesnt have a relationship with her husbands family. Pt. states at 1st she will try to do supine exercises but then states "cover me up, Im cold" This FIELD TRAINER inquires as to whether pt. thinks she might be depressed about her situation and states repeatedly that she is not and just wants to go to [facility] in [place] "not [place]" and be left to rest, " I dont want therapy there either" Pain Numeric Pain Scale: 5-Moderate Pain Location: Right Location Body Site: Thigh Pain Description: Ache Comment: c/o increased pain with attempts at exercise Appearance pale, decayed front teeth , neck in some hyperextension , edema in LEs Mental Status Patient Orientation: Person, Place, Time, Situation Attachments: Oxygen Transfers Therapy Code Descriptions/Definitions Functional [place] Measure: 0=Not Assessed/NA 4=Minimal Assistance 1=Total Assistance 5=Supervision or Setup 2=Maximal Assistance 6=Modified [place] 3=Moderate Assistance 7=Complete [place] Therapy Quality Codes: 6 Independent with activity with or without an assistive device 5 Patient requires set up or clean up by helper. Patient completes activity by themselves 4 Supervision or touching assist (CGA). [place] provide cues , steadying assist 3 The helper provides less than half the effort to complete the activity 2 The helper provides more than half the effort to complete the activity 1 Dependent. The helper does all the effort to complete an activity 7 Patient refused to complete or attempt activity 9 The patient did not perform the activity before the current illness or injury 88 Not attempted due to Medical conditions or safety concerns Scootin Rollin Weight Bearing Right Lower Extremity: Right Weight Bearing/Tolerated Left Lower Extremity: Left Full Weight Bearing Exercises Supine Ex: Ankle pumps (ssisted), Quad Set, Rolling, Glut sets, Heel Slides ( assisted), Short Arc Quads (ssisted), Scooting (assisted), Hip abd/add (assisted ) Supine Reps: 10 Treatments pt. was given warm blanket as she c/o being cold. Assessment Current Status: Refused Treatment pt. stands firm and consistent on not wanting rehab of any kind PT Short Term Goals Short Term Goals Time Frame: August 14, 2018 Transfers (B,C,W/C) (FIM): 4 Gait (FIM): 4 PT Bakery Sales Clerk Goals Bakery Sales Clerk Goals PT Bakery Sales Clerk Goals Time Frame: Aug 28, 2018 Transfers (B,C,W/C) (FIM): 6 Sit to Lying (QC): 6 Lying-Sitting on Side/Bed(QC): 6 Sit to Stand (QC): 6 Roll Left to Right (QC): 6 Chair/Xzg-dv-Ofeto Xfer(QC): 6 Car Transfer (QC): 5 Does the Patient Walk: Yes Gait (FIM): 6 Gait distance (FIM): 3=150 ft Walk 10 feet (QC): 6 Walk 10ft-Uneven Surface(QC): 4 Walk 50ft with 2 Turns (QC): 6 Walk 150 ft (QC): 6 Gait Assistive Device: FWW Does the Pt use WC or Scooter?: No Stairs (FIM): 2 # of Steps: 1 1 Step (curb) (QC): 4 4 Steps (QC): 88 12 Steps (QC): 88 Picking up an Object (QC): 88 PT Plan Treatment/Plan Treatment Plan: Continue Plan of Care Treatment Plan: Bed Mobility, Education, Functional Activity Ricky, Functional Strength, Group Therapy, Gait, Safety, Therapeutic Exercise, Transfers Treatment Duration: Aug 28, 2018 Frequency: At least 5 of 7 days/Wk (IRF) Estimated Hrs Per Day: 1.5 hours per day Patient and/or Family Agrees t: Yes Safety Risks/Education Patient Education: Disease Process Time/GCodes Time In: 845 Time Out: 915 Total Billed Treatment Time: 30 Total Billed Treatment 1,EX30m G Codes Necessary: DEBRA Langford FIELD TRAINER August 01, 2018 09:25
[2018-08-01] MEDS: POLYETHYLENE GLYCOL 17 GM (MIRALAX) PACK PO SCH ×2 (10:05→22:12)
[2018-08-01] MEDS: ATORVASTATIN 40 MG (LIPITOR) TABLET PO SCH (10:06)
[2018-08-01] MEDS: FAMOTIDINE 20 MG (PEPCID) TABLET PO SCH ×2 (10:06→22:12)
[2018-08-01] MEDS: CIPROFLOXACIN 500 MG (CIPRO) TABLET PO SCH (10:06)
[2018-08-01] MEDS: APIXABAN 5 MG (ELIQUIS) TABLET PO SCH ×2 (10:06→22:13)
[2018-08-01] MEDS: SOTALOL 80 MG (BETAPACE) TAB PO SCH ×2 (10:07→22:18)
[2018-08-01] MEDS: LORATADINE (CLARITIN) 10 MG TAB PO SCH (10:07)
[2018-08-01] MEDS: lisINopril 5 MG (PRINIVIL) TABLET PO SCH (10:07)
[2018-08-01 10:16] VITALS: BP 113/75
--- NOTE | 2018-08-01 10:49 | Occ Therapy Progress Note ---
Therapy Progress Note Pt. on bed madsen. Assisted nursing with taking bed madsen and cleansing bandar area in bed. Max assist to roll side to side. After bandar care, pt. is encouraged to participate with OT. Encouraged pt. to allow OT to assist her with getting cleaned up. Pt. adamant that she wants to be left alone, and that she is fine. Pt. spoke again about going to fdc setting. This was reported to physician earlier this a.m. by this OT from yesterday's conversation with pt. All needs met and pt. made comfortable. 1, visit [id number] Refused treatment SAMEERA ELLIS OT August 01, 2018 10:49
[2018-08-01] MEDS: ACETAMINOPHEN 500 MG TAB (TYLENOL) PO PRN ×2 (13:01→22:12)
--- NOTE | 2018-08-01 15:38 | Cardiology Progress Note ---
Subjective Date Seen by Provider: August 01, 2018 Time Seen by Provider: 15:37 Subjective/Events-last exam patient is laying down in bed, no new complaint. No chest pain or shortness of breath Review of Systems General: No Chills, No Night Sweats; Fatigue, Malaise; No Appetite, No Other HEENT: No Head Aches, No Visual Changes, No Eye Pain, No Ear Pain, No Dysphasia , No Sinus Congestion, No Post Nasal Drip, No Sore Throat, No Other Pulmonary: Dyspnea; No Cough, No Pleuritic Chest Pain, No Other Cardiovascular: No: Chest Pain, Palpitations, Orthopnea, Paroxysmal Noc. Dyspnea, Edema, Lt Headedness, Other Objective-Cardiology Exam Last Set of Vital Signs Vital Signs 08/01/18 08/01/18 08/01/18 05:09 10:16 15:15 Temp 98.5 Pulse 72 Resp 18 B/P (MAP) 113/75 (88) Pulse Ox 96 O2 Delivery Nasal Cannula O2 Flow Rate 2.00 Capillary Refill : Less Than 3 Seconds I&O Intake and Output 08/01/18 00:00 Intake Total 887 ml Balance 887 ml Intake Oral 887 ml # Voids 4 General: Alert, Oriented X3, Cooperative HEENT: Atraumatic, PERRLA Neck: Supple, No JVD, No Thyromegaly Lungs: Clear to Auscultation, Normal Air Movement Heart: Regular Rate, Normal S1, Normal S2, No Murmurs Abdomen: Normal Bowel Sounds, Soft, No Tenderness, No Hepatosplenomegaly, No Masses Extremities: No Clubbing, No Cyanosis, No Edema, Normal Pulses, No Tenderness/ Swelling Skin: No Rashes, No Breakdown, No Significant Lesion Neuro: Normal Gait, Normal Speech, Strength at 5/5 X4 Ext, Normal Tone, Sensation Intact Psych/Mental Status: Mental Status NL, Mood NL A/P-Cardiology Admission Diagnosis CAD PAF HTN right hip fx, s/p repair Assessment/Plan CAD with history of CABG in past. Patients primary manager commercial sales is Dr. Simmons. Reports recent stress test and echo within the last year. I will try to obtain copy for further review. PAF- maintained on Eliquis, Sotalol. EKG reveals SR with PVC's. Continue to monitor. HTN- continue to monitor. S/p right hip fracture repair 07/20/18 Hyponatremia- management per Dr. Barraza. UTI- on abx, management per DR. Barraza H/o breast cancer Anemia- continue to monitor H/H. Clinical Quality Measures DVT/VTE Risk/Contraindication: Risk Factor Score Per Nursin RFS Level Per Nursing on Admit: 4+=Very High NOEMY MUNGUIA MD August 01, 2018 15:38
--- NOTE | 2018-08-01 17:00 | NUR ---
Report received from Nanda HERNANDEZ. Pt up in chair ordering dinner. No complaints or needs voiced. Pt does not appear to be in any distress.
[2018-08-01 17:24] VITALS: BP 118/70
[2018-08-01 21:45] VITALS: BP 126/70
[2018-08-01] MEDS: VENLAFAXINE 50 MG (EFFEXOR) TABLET PO SCH (22:13)
[2018-08-01] MEDS: DOXEPIN 25 MG (SINEquan) CAP PO SCH (22:13)
[2018-08-02 04:19] VITALS: BP 106/58
[2018-08-02 06:52] LABS: BASOPHILS % (AUTO) 0 % (0-10); EOSINOPHILS # (AUTO) 0.2 10^3/uL (0.0-0.3); EOSINOPHILS % (AUTO) 3 % (0-10); HEMATOCRIT 26 % (35-52); HEMOGLOBIN 8.4 G/DL (11.5-16.0); LYMPHOCYTES # (AUTO) 0.7 X 10^3 (1.0-4.0); LYMPHOCYTES % (AUTO) 12 % (12-44); MEAN CORPUSCULAR HEMOGLOBIN 29 PG (25-34); MEAN CORPUSCULAR HGB CONC 33 G/DL (32-36); MEAN CORPUSCULAR VOLUME 90 FL (80-99); MEAN PLATELET VOLUME 8.2 FL (7.4-10.4); MONOCYTES % (AUTO) 18 % (0-12); NEUTROPHILS # (AUTO) 3.8 X 10^3 (1.8-7.8); NEUTROPHILS % (AUTO) 67 % (42-75); PLATELET COUNT 375 10^3/uL (130-400); RED CELL DISTRIBUTION WIDTH 12.8 % (10.0-14.5); WHITE BLOOD COUNT 5.7 10^3/uL (4.3-11.0)
[2018-08-02] MEDS: CALCIUM CARB + VIT D 600 MG (CALCARB + D) TAB PO SCH (07:01)
[2018-08-02] MEDS: SODIUM CHLORIDE 1 GM TAB (NON-FORMULARY) PO SCH ×2 (07:01→13:09)
[2018-08-02 07:21] LABS: ALANINE AMINOTRANSFERASE 17 U/L (0-55); ALBUMIN 2.7 GM/DL (3.2-4.5); ALKALINE PHOSPHATASE 120 U/L (40-136); BILIRUBIN,TOTAL 0.4 MG/DL (0.1-1.0); BUN/CREATININE RATIO 34; CALCIUM 8.6 MG/DL (8.5-10.1); CARBON DIOXIDE 32 MMOL/L (21-32); CHLORIDE 85 MMOL/L (98-107); CREATININE SERUM 0.68 MG/DL (0.60-1.30); GFR ESTIMATED > 60; GLUCOSE 96 MG/DL (70-105); POTASSIUM 4.3 MMOL/L (3.6-5.0); TOTAL PROTEIN 4.7 GM/DL (6.4-8.2)
[2018-08-02 07:35] LABS: SODIUM 123 MMOL/L (135-145)
[2018-08-02] MEDS ORDERED: DIAZ10TA3 PO (08:18)
[2018-08-02] MEDS ORDERED: POLY17PO31 PO (08:18)
[2018-08-02] MEDS ORDERED: NF-NACL1GT PO (08:18)
[2018-08-02] MEDS ORDERED: TRAM50TA2 PO (08:18)
[2018-08-02] MEDS ORDERED: BUTA1TAB9 PO (08:18)
--- NOTE | 2018-08-02 08:20 | Discharge Inst-Skilled Nursing ---
Discharge Inst-Skilled NF Patient Instructions Patient Problems: Hip fracture s/p repair Hyponatremia Severe weakness AF Goal: Return to independent living Consult/Follow Up/Orders Follow Up Appt.: Dr Plascencia in 1 week Skilled NF Admit to: Certification (SNF) I certify that SNF services are required to be given on an inpatient basis because of the above named patient's need for retirement care on a continuing basis for the conditions(s) for which he/she was receiving inpatient hospital services prior to his/her transfer to the SNF. Retirement Facility Order: Nursing Services, Body Team Member-Evaluate & Treat, Physical Therapy-Evaluate & Treat, Speech Language-Evaluate & Treat Oxygen Delivery Method: Nasal Cannula Discharge Diet: No Restrictions, Other Diet (fluid restriction 1000cc per day) Daily Activity as Tolerated: Yes New & Resume Previous Orders Gertrude Barraza August 02, 2018 08:19 GERTRUDE BARRAZA DO August 02, 2018 08:20
--- NOTE | 2018-08-02 08:21 | Discharge Summary ---
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 Acute UTI on abx s/p constipation Chronic debility O2 dependent Falls h/o breast cancer Anemia CAD Plan: IRF protocols Consult DR Montgomery Monitor BP Check labs Abx to be completed Fluid restriction Check sodium in morning NH placement since failed IRF and will update PCP Discharge Summary Discharge Physical Examination Allergies: Coded Allergies: baclofen (Verified Allergy, Unknown, 07/30/18) cephalexin (Verified Allergy, Unknown, 07/30/18) codeine (Verified Allergy, Unknown, 07/30/18) ibuprofen (Verified Allergy, Unknown, 07/30/18) promethazine (Verified Allergy, Unknown, 07/30/18) Vitals & I&Os Vital Signs Date Time Temp Pulse Resp B/P (MAP) Pulse Ox O2 Delivery O2 Flow Rate FiO2 08/02/18 12:30 Nasal Cannula 2.00 08/02/18 09:32 80 134/83 (100) 08/02/18 04:19 97.0 20 97 General Appearance: Alert, Oriented X3, Cooperative, Other (pale, frail, thin) Respiratory: Clear to Auscultation, Normal Air Movement Cardiovascular: Regular Rate, Normal S1, Normal S2 Psych/Mental Status: Mental Status NL, Other (depressed affect) Hospital Course Was the Problem List Reviewed?: Yes Hospital course: Pt had a very brief hospital course. She was admitted for inpatient rehab following hip fracture but due to the severity and the in stage processes of her illnesses including hyponatremia that is suspicious for neoplastic process since it continued to be an issue even on fluid restriction and salt tablets. She was deemed not an inpatient rehab candidate. She no longer wanted an aggressive therapy regimen so she will be DC to a snf and Dr. Plascencia will be notified of the endstage nature of her medical problems since her prognosis appears to be very poor she appears to be very chronically disabled and very pale and overall the prognosis remains very poor in my medical opinion. ( I did speak to Dr Plascencia indepth and he will obtain CT chest since presumed lung mass and that would explain the hyponatremia and source as paraneoplastic process). Labs (last 24 hrs) Laboratory Tests 07/31/18 05:25: White Blood Count 5.8, Red Blood Count 3.17L, Hemoglobin 9.1L, Hematocrit 29L, Mean Corpuscular Volume 91, Mean Corpuscular Hemoglobin 29, Mean Corpuscular Hemoglobin Concent 32, Red Cell Distribution Width 12.7, Platelet Count 421H, Mean Platelet Volume 7.8, Neutrophils (%) (Auto) 63, Lymphocytes (%) (Auto) 15, Monocytes (%) (Auto) 20H, Eosinophils (%) (Auto) 1, Basophils (%) (Auto) 0, Neutrophils # (Auto) 3.6, Lymphocytes # (Auto) 0.9L, Monocytes # (Auto) 1.2H, Eosinophils # (Auto) 0.1, Basophils # (Auto) 0.0, Sodium Level 124*L, Potassium Level 3.8, Chloride Level 85L, Carbon Dioxide Level 32, Anion Gap 7, Blood Urea Nitrogen 22H, Creatinine 0.73, Estimat Glomerular Filtration Rate > 60, BUN/ Creatinine Ratio 30, Glucose Level 127H, Calcium Level 8.1L, Corrected Calcium 9.1, Total Bilirubin 0.3, Aspartate Amino Transf (AST/SGOT) 21, Alanine Aminotransferase (ALT/SGPT) 18, Alkaline Phosphatase 97, Total Protein 4.9L, Albumin 2.8L 07/31/18 11:05: Glucometer 134H 08/02/18 05:57: White Blood Count 5.7, Red Blood Count 2.86L, Hemoglobin 8.4L, Hematocrit 26L, Mean Corpuscular Volume 90, Mean Corpuscular Hemoglobin 29, Mean Corpuscular Hemoglobin Concent 33, Red Cell Distribution Width 12.8, Platelet Count 375, Mean Platelet Volume 8.2, Neutrophils (%) (Auto) 67, Lymphocytes (%) (Auto) 12, Monocytes (%) (Auto) 18H, Eosinophils (%) (Auto) 3, Basophils (%) (Auto) 0, Neutrophils # (Auto) 3.8, Lymphocytes # (Auto) 0.7L, Monocytes # (Auto) 1.0, Eosinophils # (Auto) 0.2, Basophils # (Auto) 0.0, Sodium Level 123*L, Potassium Level 4.3, Chloride Level 85L, Carbon Dioxide Level 32, Anion Gap 6, Blood Urea Nitrogen 23H, Creatinine 0.68, Estimat Glomerular Filtration Rate > 60, BUN/ Creatinine Ratio 34, Glucose Level 96, Calcium Level 8.6, Corrected Calcium 9.6 , Total Bilirubin 0.4, Aspartate Amino Transf (AST/SGOT) 18, Alanine Aminotransferase (ALT/SGPT) 17, Alkaline Phosphatase 120, Total Protein 4.7L, Albumin 2.7L Pending Labs Laboratory Tests 07/31/18 05:25: White Blood Count 5.8, Red Blood Count 3.17, Hemoglobin 9.1, Hematocrit 29, Mean Corpuscular Volume 91, Mean Corpuscular Hemoglobin 29, Mean Corpuscular Hemoglobin Concent 32, Red Cell Distribution Width 12.7, Platelet Count 421, Mean Platelet Volume 7.8, Neutrophils (%) (Auto) 63, Lymphocytes (%) (Auto) 15, Monocytes (%) (Auto) 20, Eosinophils (%) (Auto) 1, Basophils (%) (Auto) 0, Neutrophils # (Auto) 3.6, Lymphocytes # (Auto) 0.9, Monocytes # (Auto) 1.2, Eosinophils # (Auto) 0.1, Basophils # (Auto) 0.0, Sodium Level 124, Potassium Level 3.8, Chloride Level 85, Carbon Dioxide Level 32, Anion Gap 7, Blood Urea Nitrogen 22, Creatinine 0.73, Estimat Glomerular Filtration Rate > 60, BUN/ Creatinine Ratio 30, Glucose Level 127, Calcium Level 8.1, Corrected Calcium 9.1 , Total Bilirubin 0.3, Aspartate Amino Transf (AST/SGOT) 21, Alanine Aminotransferase (ALT/SGPT) 18, Alkaline Phosphatase 97, Total Protein 4.9, Albumin 2.8 07/31/18 11:05: Glucometer 134 08/02/18 05:57: White Blood Count 5.7, Red Blood Count 2.86, Hemoglobin 8.4, Hematocrit 26, Mean Corpuscular Volume 90, Mean Corpuscular Hemoglobin 29, Mean Corpuscular Hemoglobin Concent 33, Red Cell Distribution Width 12.8, Platelet Count 375, Mean Platelet Volume 8.2, Neutrophils (%) (Auto) 67, Lymphocytes (%) (Auto) 12, Monocytes (%) (Auto) 18, Eosinophils (%) (Auto) 3, Basophils (%) (Auto) 0, Neutrophils # (Auto) 3.8, Lymphocytes # (Auto) 0.7, Monocytes # (Auto) 1.0, Eosinophils # (Auto) 0.2, Basophils # (Auto) 0.0, Sodium Level 123, Potassium Level 4.3, Chloride Level 85, Carbon Dioxide Level 32, Anion Gap 6, Blood Urea Nitrogen 23, Creatinine 0.68, Estimat Glomerular Filtration Rate > 60, BUN/ Creatinine Ratio 34, Glucose Level 96, Calcium Level 8.6, Corrected Calcium 9.6 , Total Bilirubin 0.4, Aspartate Amino Transf (AST/SGOT) 18, Alanine Aminotransferase (ALT/SGPT) 17, Alkaline Phosphatase 120, Total Protein 4.7, Albumin 2.7 Discharge Home Medications: Active Scripts Active Polyethylene Glycol 3350 17 Gm Powd.pack 34 Gm PO BID 30 Days Sodium Chloride 1 Gm Tab 1 Gm PO TIDWM Ecjmtn-Upmzates-Hqgr 50-325-40 (Butalb/Acetaminophen/Caffeine) 1 Each Tablet 1 Tab PO Q4H PRN Tramadol HCl 50 Mg Tablet 50 Mg PO Q8H PRN Diazepam 10 Mg Tablet 10 Mg PO Q12H PRN Reported Lisinopril 5 Mg Tablet 5 Mg PO DAILY Loratadine 10 Mg Tablet 10 Mg PO DAILY Venlafaxine HCl 25 Mg Tablet 12.5 Mg PO HS TAKES 1/2 (25MG) TABLET Sotalol (Sotalol HCl) 80 Mg Tablet 80 Mg PO HS Sotalol (Sotalol HCl) 80 Mg Tablet 120 Mg PO DAILY TAKES 1 & 1/2 (80MG) TABLET Acid Seasoner Hand (RANITIDINE) (Ranitidine HCl) 150 Mg Tablet 150 Mg PO BID Zofran (Ondansetron HCl) 4 Mg Tab 4-8 Mg PO Q8H PRN Lactulose 10 Gm/15 Ml Solution 30 Ml PO BID PRN Iprat-Albut 0.5-3(2.5) mg/3 ml (Ipratropium/Albuterol Sulfate) 3 Ml Ampul.neb 3 Ml NEB TID Eliquis (Apixaban) 5 Mg Tablet 5 Mg PO BID Doxepin HCl 100 Mg Capsule 100 Mg PO HS Calcium 600 + Vit D Caplet (Calcium Carbonate/Vitamin D3) 1 Each Tablet 1 Tab PO BID Lipitor (Atorvastatin Calcium) 40 Mg Tablet 40 Mg PO DAILY Instructions to patient/family Please see electronic discharge instructions given to patient. Diagnosis/Problems Diagnosis/Problems (1) Hip fracture, right (2) Atrial fibrillation (3) Constipation (4) Osteoporosis (5) Anemia (6) Anxiety (7) CAD (coronary artery disease) (8) Gastritis (9) Hyperlipidemia (10) Hyponatremia (11) Hypothyroidism (12) Restrictive lung disease (13) GERD (gastroesophageal reflux disease) (14) Hypertension (15) Oxygen dependent (16) HX: breast cancer (17) History of melanoma (18) Anticoagulant prescribed (19) Hx of CABG Clinical Quality Measures DVT/VTE Risk/Contraindication: Risk Factor Score Per Nursin RFS Level Per Nursing on Admit: 4+=Very High DENEEN CANALES DO August 02, 2018 08:21
--- NOTE | 2018-08-02 08:39 | Occ Therapy Progress Note ---
Therapy Progress Note Pt. discharging today. Attempted treatment this morning. Offered pt. assist to get cleaned up before discharge. Pt. in bed with blankets pulled up to neck. Declines any treatment at this time. Pt. will discharge to [facility] today per her request. 1, visit [id number] SAMEERA ELLIS OT August 02, 2018 08:39
--- NOTE | 2018-08-02 08:43 | Therapy Team Discharge Summary ---
Therapy Discharge Summary Discharge Recommendations Date of Discharge 08-02-18 Therapy D/C Recommendations: 24 hr Supervision, Prison Placement Occupational Therapy Pt. was seen for initial evaluation. Pt. participated that date, but then continued to decline all efforts at treatment after that. Pt. requested to be discharged to intermediate. Pt. to discharge today with 24 hour care and assistance. No goals met at this time. Decreased Activ Tolerance, Decreased UE Strength, Dependent Transfers, Impaired Funct Balance, Impaired I ADL's, Impaired Self-Care Skills, Restricted Funct UE ROM PT Warp Knitter Helper Goals Chcf Goals PT Warp Knitter Helper Goals Time Frame: Aug 28, 2018 Transfers (B,C,W/C) (FIM): 6 Roll Left to Right (QC): 6 Sit to Lying (QC): 6 Lying-Sitting on Side/Bed(QC): 6 Sit to Stand (QC): 6 Chair/Fby-ws-Gnqgk Xfer(QC): 6 Car Transfer (QC): 5 Does the Patient Walk: Yes Gait (FIM): 6 Gait distance (FIM): 3=150 ft Walk 10 feet (QC): 6 Walk 10ft-Uneven Surface(QC): 4 Walk 50ft with 2 Turns (QC): 6 Walk 150 ft (QC): 6 Gait Assistive Device: FWW Does the Pt use WC or Scooter?: No Stairs (FIM): 2 # of Steps: 1 1 Step (curb) (QC): 4 4 Steps (QC): 88 12 Steps (QC): 88 Picking up an Object (QC): 88 OT Chcf Goals Chcf Goals Time Frame: August 21, 2018 Eating (FIM): 6 (not met) Eating (QC): 6 (not met) Oral Hygiene (QC): 6 (not met) Grooming(FIM): 6 (not met) Bathing(FIM): 5 (not met) Shower/Bathe Self (QC): 5 (not met) Upper Body Dressing(FIM): 6 (not met) Lower Body Dressing(FIM): 5 (not met) Lower Body Dressing (QC): 5 (not met) On/Off Footwear (QC): 5 (not met) Toileting(FIM): 6 (not met) Toileting Hygiene (QC): 6 (not met) Transfers (B,C,W/C) (FIM): 6 (not met) Toilet/Commode Transfer(FIM): 6 (not met) Toilet/Commode Transfer (QC): 6 (not met) Shower Transfer(FIM): 5 (not met) Additional Goals: 1-Demonstrate ADL Tasks, 2-Verbalize Understanding, 3- ImproveStrength/Ricky 1=Demonstrate adherence to instructed precautions during ADL tasks. 2=Patient will verbalize/demonstrate understanding of assistive devices/ modifications for ADL. 3=Patient will improve strength/tolerance for activity to enable patient to perform ADL's. SAMEERA ELLIS OT August 02, 2018 08:43
[2018-08-02] MEDS: POLYETHYLENE GLYCOL 17 GM (MIRALAX) PACK PO SCH (09:00)
[2018-08-02] MEDS: ATORVASTATIN 40 MG (LIPITOR) TABLET PO SCH (09:31)
[2018-08-02] MEDS: FAMOTIDINE 20 MG (PEPCID) TABLET PO SCH (09:31)
[2018-08-02] MEDS: LORATADINE (CLARITIN) 10 MG TAB PO SCH (09:31)
[2018-08-02 09:32] VITALS: BP 134/83
[2018-08-02] MEDS: APIXABAN 5 MG (ELIQUIS) TABLET PO SCH (09:32)
[2018-08-02] MEDS: SOTALOL 80 MG (BETAPACE) TAB PO SCH (09:32)
[2018-08-02] MEDS: lisINopril 5 MG (PRINIVIL) TABLET PO SCH (09:32)
--- NOTE | 2018-08-02 09:39 | Diagnostic Imaging Report ---
INDICATION: Hyponatremia. COMPARISON: None FINDINGS: 2 frontal radiographic views of the chest were obtained and show moderate area of dense opacification involving the right mid and lower lung field. There is also dense opacification of the left base. Both hemidiaphragms are completely obscured. There is no pneumothorax on either side. Cardiac silhouette is mildly enlarged. Pulmonary vasculature appears to be within normal limits. Sternotomy wires are noted. Bony structures show no gross acute abnormalities. IMPRESSION: 1. Large area of opacification within the right mid and lower lung field. Findings could be on the basis of large effusion with associated atelectasis. Underlying pneumonia or even pulmonary mass cannot be excluded. 2. Probable mild left basilar effusion with associated atelectasis. 3. Mild cardiomegaly. Dictated by: Dictated on workstation # [id number]
[2018-08-02] MEDS: RT-ALBUTEROL/IPRATROPIUM 3 ML (DUONEB) VIAL IH SCH ×2 (09:52→12:29)
--- NOTE | 2018-08-02 11:10 | Physical Therapy Progress Note ---
Therapy Progress Note Entered pt room at approx 910 am this date to offer positional change or out of bed for comfort and pt declined. Reported she was comfortable in bed and wished to stay in bed at this time. Offered for her to sit up to take her medications or for a snack but continued to request to stay in bed. No treatment rendered. EVELIO CANALES PT August 02, 2018 11:10
--- NOTE | 2018-08-02 11:19 | Therapy Team Discharge Summary ---
Therapy Discharge Summary Discharge Recommendations Date of Discharge 08/02/2018 Therapy D/C Recommendations: 24 hr Supervision, Usp Placement Physical Therapy This patient admitted to ARU post acute hospital stay to repair a fractured hip. Upon admission, she required assist with all bed mobility and transfers and was able to walk short distances in her room. She follows cues well and is able to problem solve mobiltiy. However, she has expressed disinterest in participation with skilled therapy intervention in this setting and has refused further PT while here. Note, she is able to effectively participate with therapy and does have potential to make gains should she be compliant. I would recommend continued efforts for skilled therapy intervention for the patient's best interest in terms of participation in her environment. DC from this unit at this time. Occupational Therapy Decreased Activ Tolerance, Decreased UE Strength, Dependent Transfers, Impaired Funct Balance, Impaired I ADL's, Impaired Self-Care Skills, Restricted Funct UE ROM PT Alf Goals Alf Goals PT Alf Goals Time Frame: Aug 28, 2018 Transfers (B,C,W/C) (FIM): 6 Roll Left to Right (QC): 6 Sit to Lying (QC): 6 Lying-Sitting on Side/Bed(QC): 6 Sit to Stand (QC): 6 Chair/Vop-do-Ftjlv Xfer(QC): 6 Car Transfer (QC): 5 Does the Patient Walk: Yes Gait (FIM): 6 Gait distance (FIM): 3=150 ft Walk 10 feet (QC): 6 Walk 10ft-Uneven Surface(QC): 4 Walk 50ft with 2 Turns (QC): 6 Walk 150 ft (QC): 6 Gait Assistive Device: FWW Does the Pt use WC or Scooter?: No Stairs (FIM): 2 # of Steps: 1 1 Step (curb) (QC): 4 4 Steps (QC): 88 12 Steps (QC): 88 Picking up an Object (QC): 88 no goals achieved OT Customs Compliance Manager Goals Alf Goals Time Frame: August 21, 2018 Eating (FIM): 6 (not met) Eating (QC): 6 (not met) Oral Hygiene (QC): 6 (not met) Grooming(FIM): 6 (not met) Bathing(FIM): 5 (not met) Shower/Bathe Self (QC): 5 (not met) Upper Body Dressing(FIM): 6 (not met) Lower Body Dressing(FIM): 5 (not met) Lower Body Dressing (QC): 5 (not met) On/Off Footwear (QC): 5 (not met) Toileting(FIM): 6 (not met) Toileting Hygiene (QC): 6 (not met) Transfers (B,C,W/C) (FIM): 6 (not met) Toilet/Commode Transfer(FIM): 6 (not met) Toilet/Commode Transfer (QC): 6 (not met) Shower Transfer(FIM): 5 (not met) Additional Goals: 1-Demonstrate ADL Tasks, 2-Verbalize Understanding, 3- ImproveStrength/Ricky 1=Demonstrate adherence to instructed precautions during ADL tasks. 2=Patient will verbalize/demonstrate understanding of assistive devices/ modifications for ADL. 3=Patient will improve strength/tolerance for activity to enable patient to perform ADL's. EVELIO CANALES PT August 02, 2018 11:18
--- NOTE | 2018-08-02 13:00 | Cardiology Progress Note ---
Subjective Date Seen by Provider: August 02, 2018 Time Seen by Provider: 12:59 Subjective/Events-last exam Patient in bed, no new complaints. Denies any chest pain or dyspnea. Objective-Cardiology Exam Last Set of Vital Signs Vital Signs 08/02/18 08/02/18 08/02/18 04:19 09:32 12:30 Temp 97.0 Pulse 80 Resp 20 B/P (MAP) 134/83 (100) Pulse Ox 97 O2 Delivery Nasal Cannula O2 Flow Rate 2.00 Capillary Refill : Less Than 3 Seconds I&O Intake and Output 08/02/18 00:00 Intake Total 890 ml Balance 890 ml Intake Oral 890 ml # Voids 7 # Bowel Movements 1 General: Alert, Oriented X3, Cooperative HEENT: Atraumatic, PERRLA Neck: Supple, No JVD, No Thyromegaly Lungs: Clear to Auscultation, Normal Air Movement Heart: Regular Rate, Normal S1, Normal S2, No Murmurs Abdomen: Normal Bowel Sounds, Soft, No Tenderness, No Hepatosplenomegaly, No Masses Extremities: No Clubbing, No Cyanosis, No Edema, Normal Pulses, No Tenderness/ Swelling Skin: No Rashes, No Breakdown, No Significant Lesion Neuro: Normal Gait, Normal Speech, Strength at 5/5 X4 Ext, Normal Tone, Sensation Intact Psych/Mental Status: Mental Status NL, Mood NL Results Lab Laboratory Tests 08/02/18 05:57 A/P-Cardiology Admission Diagnosis CAD PAF HTN right hip fx, s/p repair Assessment/Plan CAD with history of CABG in past. Patients primary manufacturing quality manager is Dr. Simmons. Reports recent stress test and echo within the last year. I will try to obtain copy for further review. PAF- maintained on Eliquis, Sotalol. EKG reveals SR with PVC's. Continue to monitor. HTN- continue to monitor. S/p right hip fracture repair 07/20/18 Hyponatremia- management per Dr. Barraza. UTI- on abx, management per DR. Barraza H/o breast cancer Anemia- continue to monitor H/H. Questionable pulmonary mass on CXR Clinical Quality Measures DVT/VTE Risk/Contraindication: Risk Factor Score Per Nursin RFS Level Per Nursing on Admit: 4+=Very High BENNY FINK August 02, 2018 13:00
--- NOTE | 2018-08-02 13:58 | Cardiology Progress Note ---
Subjective Date Seen by Provider: August 02, 2018 Time Seen by Provider: 13:53 Subjective/Events-last exam Patient is in bed, no new complaint Review of Systems General: No Chills, No Night Sweats; Fatigue, Malaise; No Appetite, No Other HEENT: No Head Aches, No Visual Changes, No Eye Pain, No Ear Pain, No Dysphasia , No Sinus Congestion, No Post Nasal Drip, No Sore Throat, No Other Pulmonary: Dyspnea; No Cough, No Pleuritic Chest Pain, No Other Cardiovascular: No: Chest Pain, Palpitations, Orthopnea, Paroxysmal Noc. Dyspnea, Edema, Lt Headedness, Other Objective-Cardiology Exam Last Set of Vital Signs Vital Signs 08/02/18 08/02/18 08/02/18 04:19 09:32 12:30 Temp 97.0 Pulse 80 Resp 20 B/P (MAP) 134/83 (100) Pulse Ox 97 O2 Delivery Nasal Cannula O2 Flow Rate 2.00 Capillary Refill : Less Than 3 Seconds I&O Intake and Output 08/02/18 00:00 Intake Total 890 ml Balance 890 ml Intake Oral 890 ml # Voids 7 # Bowel Movements 1 General: Alert, Oriented X3, Cooperative HEENT: Atraumatic, PERRLA Neck: Supple, No JVD, No Thyromegaly Lungs: Clear to Auscultation, Normal Air Movement Heart: Regular Rate, Normal S1, Normal S2, No Murmurs Abdomen: Normal Bowel Sounds, Soft, No Tenderness, No Hepatosplenomegaly, No Masses Extremities: No Clubbing, No Cyanosis, No Edema, Normal Pulses, No Tenderness/ Swelling Skin: No Rashes, No Breakdown, No Significant Lesion Neuro: Normal Gait, Normal Speech, Strength at 5/5 X4 Ext, Normal Tone, Sensation Intact Psych/Mental Status: Mental Status NL, Mood NL Results Lab Laboratory Tests 08/02/18 05:57 A/P-Cardiology Admission Diagnosis CAD PAF HTN right hip fx, s/p repair Assessment/Plan CAD with history of CABG in past. Patients primary outside contractor sales is Dr. Simmons. Reports recent stress test and echo within the last year. Possible transfer to CT Chest x-ray showed right-sided effusion, questionable infiltrate or lung mass, I discussed the finding with Dr. Lowry who will evaluate and possible to CT scan PAF- maintained on Eliquis, Sotalol. EKG reveals SR with PVC's. Continue to monitor. HTN- continue to monitor. S/p right hip fracture repair 07/20/18 Hyponatremia- management per Dr. Barraza. UTI- on abx, management per DR. Barraza H/o breast cancer, Anemia- continue to monitor H/H. Questionable pulmonary mass on CXR Clinical Quality Measures DVT/VTE Risk/Contraindication: Risk Factor Score Per Nursin RFS Level Per Nursing on Admit: 4+=Very High NOEMY MUNGUIA MD August 02, 2018 1:58 pm
--- NOTE | 2018-08-02 14:00 | NUR ---
Report called to Claudia at [facility]. Patient to d/c from -ARU this afternoon, transport via [facility] wheelchair van.
[2018-08-02] MEDS ORDERED: CATHETER FLUSH 10 ML SYR IV PRN (14:30)
[2018-08-02] MEDS ORDERED: HOLD METFORMIN - RECEIVED CONTRAST 20 ML VIAL IV SCH (14:30)
[2018-08-02] MEDS ORDERED: IOHEXOL 350 MG/ML 100 ML (OMNIPAQUE 350) VIAL IV ONE (14:30)
--- NOTE | 2018-08-07 14:15 | Physician Query Clarification ---
PQ-Further Specificity Admission/Discharge Admission Date: July 30, 2018 at 18:12 Discharge Date: August 02, 2018 at 14:30 The medical record reflects the following clinical scenario: History/Risk Factors: rt femur fx, CAD PAF Clinical Findings: Per IRF assessment - RT displaced intertrochanteric fracture s/p repair Treatment: repaired Question: Can you further specify rt femur fx per the clinical indicators above ? Please document below. 1. Rt displaced intertrochanteric fracture 2. Rt hip fracture 3. Other, with explanation of the clinical findings. 4. Clinically undetermined, no explanation for the clinical findings. PHYSICIAN RESPONSE Can you specify per above: 1 In responding to this query, please exercise your independent professional judgment. The purpose of this communication is to more accurately reflect the complexity of your patients condition. The fact that a question is asked does not imply that any particular answer is desired or expected. Thank you for your timely response to this clarification. Requestors name: Katie THIS PHYSICIAN QUERY FORM IS A PERMANENT PART OF THE MEDICAL RECORD KATIE SANDY August 07, 2018 14:15 DENEEN CANALES DO August 07, 2018 20:17
== END 2018-08-02 14:30 | DRG 560 ==
PROVIDERS: ADMIT Internal Medicine; ATTEND Internal Medicine
DX: S72.141D Displaced intertrochanteric fracture of right femur, subsequent encounter for closed fracture with routine healing (principal); I48.0 Paroxysmal atrial fibrillation; J98.4 Other disorders of lung; R91.8 Other nonspecific abnormal finding of lung field; E87.1 Hypo-osmolality and hyponatremia; N39.0 Urinary tract infection, site not specified; Z99.81 Dependence on supplemental oxygen; Z66 Do not resuscitate; R29.6 Repeated falls; D64.9 Anemia, unspecified; I25.10 Atherosclerotic heart disease of native coronary artery without angina pectoris; K59.09 Other constipation; M81.0 Age-related osteoporosis without current pathological fracture; F41.9 Anxiety disorder, unspecified; F32.9 Major depressive disorder, single episode, unspecified; E78.5 Hyperlipidemia, unspecified; E03.9 Hypothyroidism, unspecified; K21.9 Gastro-esophageal reflux disease without esophagitis; I10 Essential (primary) hypertension; N19 Unspecified kidney failure; L89.159 Pressure ulcer of sacral region, unspecified stage; L89.109 Pressure ulcer of unspecified part of back, unspecified stage; C43.9 Malignant melanoma of skin, unspecified; Z85.3 Personal history of malignant neoplasm of breast; Z95.1 Presence of aortocoronary bypass graft; Z79.01 Long term (current) use of anticoagulants
CPT/HCPCS: 36415; 71045; 80053; 82962; 85025; 93005; 94640; 94760